=== PATIENT | male | born 1945 | race Caucasian/White ===

== ENCOUNTER 2019-08-29 11:11 | Outpatient (CLI) | payer MEDICARE, SELFPAY ==
--- NOTE | 2019-08-29 12:45 | USCV_ITS ---
Jose Bocanegra Age: 73 Gender: M : 1945 Exam Date: 08/29/2019 11:24 Ordering Phys: Lakeshia Lipscomb MD ([email or web address]) Technologist: Nader Bird [place]am Location[place] [facility] [place]: BP: 134 / 80 HR: 100 Rhythm: Sinus Technical Quality: Adequate MEASUREMENTS (Male / Female) Normal Values 2D ECHO LV Diastolic Diameter PLAX 2.9 cm 4.2 - 5.9 / 3.9 - 5.3 cm LV Systolic Diameter PLAX 2.1 cm IVS Diastolic Thickness 1.4 cm 0.6 - 1.0 / 0.6 - 0.9 cm IVS Systolic Thickness 1.7 cm LVPW Diastolic Thickness 1.5 cm 0.6 - 1.0 / 0.6 - 0.9 cm LVPW Systolic Thickness 1.7 cm LVOT Diameter 2.0 cm LV Ejection Fraction 2D Teich 55.3 % LV Ejection Fraction MOD 2C 69.6 % LV Ejection Fraction 2C AL 70.1 % LA Diameter 4.3 cm LA Width 3.6 cm LA Height 4.0 cm RA Width 3.2 cm RA Height 4.0 cm Aorta at Sinotubular Diameter 2.8 cm M-MODE LV Diastolic Diameter MM 5.1 cm 4.2 - 5.9 / 3.9 - 5.3 cm LV Systolic Diameter MM 3.6 cm LV Ejection Fraction MM Teich 57.4 % IVS Diastolic Thickness MM 1.2 cm 0.6 - 1.0 / 0.6 - 0.9 cm IVS Systolic Thickness MM 1.8 cm LVPW Diastolic Thickness MM 1.4 cm 0.6 - 1.0 / 0.6 - 0.9 cm LVPW Systolic Thickness MM 1.8 cm RV Diastolic Diameter MM 1.8 cm Aortic Annulus Diameter 3.3 cm LA Ao Ratio MM 1.3 MV E Point Septal Separation 1.6 cm DOPPLER AV Peak Velocity 320.0 cm/s LVOT Peak Velocity 108.0 cm/s AV Area Cont Eq vti 1.1 cm squared AV Area Cont Eq pk 1.1 cm squared MV Area PHT 5.0 cm squared Mitral E to A Ratio 0.6 MV E' Velocity 9.0 cm/s Mitral E to MV E' Ratio 11.3 Mitral E to LV E' Lateral Ratio 8.3 Mitral E to LV E' Septal Ratio 18.1 TR Peak Velocity 295.0 cm/s TR Peak Gradient 34.8 mmHg TV Peak E Velocity 74.0 cm/s FINDINGS Left Ventricle Normal left ventricular cavity size. Normal left ventricular systolic function. No regional wall motion abnormalities. Left ventricular ejection fraction is estimated at 57 %. Grade I/IV diastolic dysfunction (abnormal relaxation filling pattern), normal to mildly elevated filling pressures. Right Ventricle The right ventricle is normal in size and function. RVSP could not be calculated due to incomplete tricuspid regurgitation velocity profile. Right Atrium The right atrium is normal in size. Left Atrium The left atrium is normal in size. Mitral Valve Structurally normal mitral valve without significant stenosis or prolapse. There is no mitral regurgitation. Aortic Valve Severe aortic valve calcification. Moderate aortic valve stenosis, mean gradient 18.6 mmHg, ALYSSA 1.1 cm2 trace aortic valve regurgitation.. Tricuspid Valve Mild tricuspid valve regurgitation. Pulmonic Valve Structurally normal pulmonic valve without significant stenosis. There is no pulmonic regurgitation. Pericardium Normal pericardium without effusion. Aorta Normal ascending aorta dimension. CONCLUSIONS 1-Normal left ventricular cavity size. Normal left ventricular systolic function. No regional wall motion abnormalities. Left ventricular ejection fraction is estimated at 57 %. Grade I/IV diastolic dysfunction (abnormal relaxation filling pattern), normal to mildly elevated filling pressures. 2-Severe aortic valve calcification. Moderate aortic valve stenosis, mean gradient 18.6 mmHg, ALYSSA 1.1 cm2 trace aortic valve regurgitation.. 3-Mild tricuspid valve regurgitation. 4-The right ventricle is normal in size and function. RVSP could not be calculated due to incomplete tricuspid regurgitation velocity profile. 5-There is no pericardial effusion. 6-Right atrial pressure is around 5 mm of mercury. 7-No significant change since the prior echocardiogram study of 05/18/2018. Lakeshia Lipscomb MD (Electronically Signed) Final Date: 01 Sep 2019 19:06 S
== END 2019-08-29 11:12 | disposition home or self-care (01) ==
PROVIDERS: Family Provider Internal Medicine; PCP Internal Medicine; Visit Provider Internal Medicine Cardiovascular Disease
DX: I35.0 Nonrheumatic aortic (valve) stenosis (principal); R06.02 Shortness of breath; I51.81 Takotsubo syndrome; I08.1 Rheumatic disorders of both mitral and tricuspid valves; I70.0 Atherosclerosis of aorta
CPT/HCPCS: 93306

== ENCOUNTER 2020-03-15 08:03 | Outpatient (CLI) | payer MEDICARE, SELFPAY ==
[2020-03-15 08:54] LABS: Basophils # 0.1 10^3/uL (0.0-0.1); Basophils % 1.3 %; Eosinophils # 0.4 10^3/uL (0.0-0.8); Eosinophils % 3.7 %; Hematocrit 44.2 % (42.0-52.0); Hemoglobin 14.1 g/dL (11.7-16.6); Lymphocytes # 1.7 10^3/uL (0.8-4.8); Lymphocytes % 16.2 %; Mean Corpuscular HGB Conc 31.9 g/dL (30.0-36.0); Mean Corpuscular Hemoglobin 30.9 pg (28.0-34.0); Mean Corpuscular Volume 96.7 fL (80-94); Mean Platelet Volume 10.7 fL (7.4-10.4); Monocytes # 0.7 10^3/uL (0.2-0.9); Monocytes % 6.6 %; Neutrophils # 7.34 10^3/uL (1.8-7.7); Neutrophils % 71.4 %; Nucleated Red Blood Cells % 0 %; Platelet Count 132 10^3/cmm (130-400); Red Blood Count 4.57 10^6/uL (4.1-5.3); Red Cell Distribution Width 14.2 % (12.1-15.1); White Blood Count 10.3 10^3/uL (4.0-10.0)
[2020-03-15 09:06] LABS: INR 0.95 (0.8-1.2)
[2020-03-15 09:13] LABS: Anion Gap 17.6 (5-19); Blood Urea Nitrogen 16 mg/dL (8-23); Calcium 9.7 mg/dL (8.5-10.5); Carbon Dioxide 25 mmol/L (22-29); Chloride 98 mmol/L (98-107); Glucose 171 mg/dL (65-115); Osmolality Calculated 287 mOsm/kg (285-295); Potassium 4.6 mmol/L (3.5-5.1); Sodium 136 mmol/L (136-145)
== END 2020-03-15 08:04 | disposition home or self-care (01) ==
LOC: LAB 08:09
PROVIDERS: PCP Internal Medicine; Visit Provider Internal Medicine Cardiovascular Disease
DX: Z01.812 Encounter for preprocedural laboratory examination (principal)
CPT/HCPCS: 36415; 80048; 85025; 85610; 87635

== ENCOUNTER 2020-03-18 05:48 | Day surgery (SDC) | payer MEDICARE, SELFPAY ==
[2020-03-18] VITALS (16 sets, daily range): BP systolic 103–161; BP diastolic 68–93; PULSE 71–90; RESP 12–20; TEMP 37.1; O2SAT 93–98; BMI 30.5
--- NOTE | 2020-03-18 06:05 | XACV_ITS ---
Exam Room: 1 Ht: 173 cm Wt: 91 kg BSA: 2.12 m2 Gender: Male : 1945 Any Known Allergies: No known allergies Exam Priority: Routine Indication(s): - Chest pain Procedure(s): Procedure Description: Diagnostic procedure Procedure Description: Left Heart Catheterization Procedure Description: Right Heart Catheterization Procedure Description: O2 saturation Procedure Description: Coronary Angiography Diagnostic Cath Status: Elective Diagnostic Findings * No significant disease noted in the Left Main, LAD, Circumflex, or RCA coronary arteries. * Coronary angiography shows right dominance. Conclusions 1. No significant disease noted in the Left Main, LAD, Circumflex, or RCA coronary arteries. 2. Indication for 3. left heart cath 4. : 5. Preop 6. for aortic valve surgery. Recommendations * Continue current medical management and risk factor modification. Diagnostic RX Recommendation: none Pressures Phase:Rest AO : 89 / 59 ( 74 ) @ 2:19:00 AM RV : 34 / 0 / @ 2:03:00 AM PA : 34 / 13 ( 21 ) @ 2:02:00 AM RA : a wave = v wave = mean = 5 @ 2:05:00 AM O2 Content Phase:Rest PA : O2 Content O2: 64.9 @ 2:19:00 AM Saturations Phase:Rest AO : 92 @ 2:05:00 AM RA : 67 @ 2:04:00 AM RV : 68 @ 2:02:00 AM PA : 65 @ 2:19:00 AM Cardiac Output Phase:Rest Joann : 5 @ 2:19:00 AM Joann Cardiac Index: 2 @ 2:19:00 AM Clinical Evaluation EBL: 5mL-10mL Procedural Details Procedure Consent Obtained. Current Diagnosis : Chest Pain. Pre-Procedure Time Out. Identified patient by full name and date of as verbalized by the patient/guarantor. Does the consent match the physician's order: Yes. Accurate & Complete Informed Consent: Yes. Inpatient/Outpatient History & Physical on Chart: Yes. If H&P is completed, is and addenduem needed: N/A; If yes, is the addendum complete: N/A. Visualize and Verify Site with Patient/Guarantor: N/A. Relevant Radiology Images available: Yes. The risks, benefits, and alternatives of sedation and/or procedure were discussed by physician. The patient agrees to continue. Procedure started. [facility] Clinical Fraility Score: 3: Managing Well. 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 Chest Pain Symptom Assessment: Typical Angina Symptoms. Cardiovascular Instability: No. Correct patient, site and procedure confirmed by cath team. Current diagnosis: New Onset Angina/Unexplained SOB/Pre-Op AVR. PERRLA. Strong, equal hand country printer bilaterally. Lungs clear x 5 lobes. IV Site on Arrival: 18 gauge in the right anticubital to be used for RHC. IV Site on Arrival: 18 gauge in the left anticubital. IV Fluids: 0.9% NaCl at KVO. 0 mL infused prior to shellfish processing laborer. Pre Procedural Pulses: bilateral dorsalis pedis was 2+. Pre Procedural Pulses: bilateral posterior tibial was 3+. Pre Procedural Pulses: bilateral radial was 3+. right groin was prepped with chloroprep then draped in the usual sterile fashion. right radial was prepped with chloroprep then draped in the usual sterile fashion. Baseline sample Acquired. HR: 69 BPM. Patient's family unavailable due to current Covid-19 restrictions. Will update the patient's sister, Sil, at throughout the procedure. Equipment: 6F - Radial. Cardiac Cath Pack. ACIST Manifold Kit Model BT 2000. Heparinized Saline (2 units/mL), 1000 mL bag. Physician notified. Physician arrived. Physician scrubbed in. Immediate Pre-Procedure Time Out. Correct Patient: Yes; Correct Procedure: Yes; Correct Site: Yes; Correct Patient Position: Yes; Correct Supplies: Yes; Dried Flammable Prep: Yes; Blood Products Available: N/A;. Lidocaine 1% infiltrated to the right brachial. [place] MON catheter inserted. Oximetry samples were obtained. Normal venous range: 60-85%. Normal arterial range: 95-100%. Pressure measurements obtained. [place] out. Lidocaine 1% infiltrated to the right radial. Arterial access obtained. A 5 belgian TIG catheter in over the exchange wire. Multiple views taken of left coronary artery. Catheter redirected to the RCA. Multiple views taken of right coronary artery. AO Sat Drawn. Catheter removed over the exchange wire. A 5 belgian Angled Pig catheter in over the exchange wire. Oxygen started at 3liters/min via nasal canula. Exchange wire out, 260cm Angled Glidewire in. Catheter removed over the glidewire. A 5 belgian MPA1 catheter in over the exchange glidewire. Glidewire out, Exchange wire in. Catheter removed over the exchange wire. A 5 belgian Angled Pig catheter in over wire. Catheter removed over the exchange wire. Physician scrubbed out. Patient's family updated per Dr. Lipscomb. 6 fr Sheath brachial sheath removed and manual pressure held until hemostasis was achieved. Sterile 4x4 and Op-site applied to the puncture site. No oozing or hematoma noted. Post sheath removal instructions were given and the patient verbalized understanding. TR band placed. Hemostasis obtained. Post Procedure: Pulses reassessed and unchanged. PERRLA. Strong, equal hand country printer bilaterally. No VTE prophylaxis required. Medication's Wasted: Nitro = 49.8 mg. Medication's Wasted: Heparin = 1000 Units. Total IV fluids: 100 mL. A TR Band was successful obtaining hemostatsis at the Right Radial artery insertion site. A Manual Compression was successful obtaining hemostatsis at the Right Brachial Vein insertion site. Post-op diagnosis: Severe Aortic Stenosis/Normal Coronaries. Complications: none. Estimated blood loss: 5mL-10mL. Procedure completed. Patient transferred by wheelchair to CPRU. Vital chart was stopped. Access Site Site: Right Brachial Vein Sheath Size: 6 Fr Hemostasis Method: Manual Compression Hemostasis Success: Successful Site: Right Radial artery Sheath Size: 6 Fr Hemostasis Method: TR Band Hemostasis Success: Successful Procedure Medications Start: 7:42 AM Stop: 7:42 AM Medication: Versed Amount: 1 mg Route: I.V. Start: 7:42 AM Stop: 7:42 AM Medication: Fentanyl Amount: 50 mcg Route: I.V. Start: 8:17 AM Stop: 8:17 AM Medication: Nitrogylcerin Amount: 200 mcg Route: I.A. Start: 8:18 AM Stop: 8:18 AM Medication: Heparin Amount: 5000 units Route: I.V. Start: 8:29 AM Stop: 8:29 AM Medication: Versed Amount: 1 mg Route: I.V. Start: 8:29 AM Stop: 8:29 AM Medication: Fentanyl Amount: 50 mcg Route: I.V. I, the attending physician, have reviewed and verified all procedure medications. Yes, all medications given per verbal order History/Risk Factors Hypertension: Yes Dyslipidemia: Yes Peripheral Arterial Disease (PAD): No Myocardial Infarction (FL): No Obesity: No Renal Disease: No Tobacco Use: Former Prior Interventions PCI: No CABG: No Valve Surgery: No Report Signatures Finalized by Lakeshia Lipscomb MD on 03/31/2020 06:13 PM
[2020-03-18] MEDS: diphenhydrAMINE 50 mg Capsule PO (06:20)
--- NOTE | 2020-03-18 07:42 | W.PM.OPSUD ---
Surgery/Procedure H&P Update DATE OF PROCEDURE: March 18, 2020 DATE H&P PERFORMED: 03/18/20 H&P UPDATE INFORMATION: I have reviewed H&P completed within last 30 days, I have examined patient prior to procedure and No changes to prior documentation PREOP DIAGNOSIS: Preop for aortic valve, unexplained shortness of breath PLANNED PROCEDURE: Operation Date: 03/18/20 07:00 Proposed Procedures p Cardiac Catheterization(Bilateral) - Lakeshia Lipscomb MD PATIENT REASSESSED PRIOR TO SEDATION, WITH NO CHANGE NOTED: Yes PHYSICAL EXAM: alert, oriented x 3 and clear to auscultation bilaterally AIRWAY EVAL/ANESTHESIA PLAN: ASA II, Risks, benefits & alternatives of sedation and/or procedure discussed and Patient agrees to continue as planned
--- NOTE | 2020-03-18 07:43 | W.PM.OPSUD ---
Surgery/Procedure H&P Update DATE OF PROCEDURE: February 29, 2020 DATE H&P PERFORMED: 03/18/20 PREOP DIAGNOSIS: Preop for aortic valve, unexplained shortness of breath PLANNED PROCEDURE: Operation Date: 03/18/20 07:00 Proposed Procedures p Cardiac Catheterization(Bilateral) - Lakeshia Lipscomb MD
--- NOTE | 2020-03-18 09:00 | PC.NURSE ---
pre-op received pt from terrazzo laborer with diagnostic right and left heart cath. pt alert and oriented x3. complains of no pain. tr band in place with no hematoma present. pt hooked to vitals machine and will monitor.
--- NOTE | 2020-03-18 09:30 | PC.CHAP ---
Pastoral Care Encounter/Spiritual Assessment Type of Contact [] Declined console operator visit [] Patient/Family/Request visit [] Outpatient visit [] Follow-up visit [] Physician referral [] Code/Alert [] Routine visit [] Staff referral [] Actively dying [] Patient sleeping [] Family support [] [x] Out of room [] Palliative care [] [] Receiving care in room [] Pre-surgical visit [] Trauma [] Long length of stay [] ICU visit [] Other: Relational/Emotional Strength [] Patient feels connected with others/family/visitors/staff [] Distress [] Loneliness/isolation [] Abandonment Spirituality of Patient [] Person of Saniya [] Attends Baptism of their Saniya [] Believes in Prayer [] Reads Bible or Congregation materials [] There are Spiritual issues to be addressed Saw Edge Fuser Circular Interventions [] Prayer [] Active listening [] Non-anxious presence [] Spiritual/emotional support [] Crisis/trauma care [] Spiritual counseling [] Bereavement support [] Provided bereavement packet [] Provided Bible/devotional materials [] Provided toy/stuffed animal, coloring book to patient or family member [] Provided Communion [] Anointing/[place] [] Salvation [x] Completed spiritual assessment [] Other: Impact on Illness or Injury [] Angry [] Fearful [] Anxious [] Often cries [] Exhaustion [] Unable to work [] Unable to attend confucianist [] Unable to walk/stand [] Unable to read [] Unable to drive [] Unable to eat/drink [] Unable to sleep [] Unable to be with family [] Patient intubated [] Other: Summary Time spent with patient
--- NOTE | 2020-03-18 10:06 | PC.NURSE ---
tr band removed 3 ml of air from tr band. no bleeding noted. will continue to watch for bleeding/hematoma.
--- NOTE | 2020-03-18 11:45 | PC.NURSE ---
tr band removed tr band removed and will continue to monitor site. pt reminded to keep pressure off right wrist. pt acknowledged understanding.
== END 2020-03-18 13:44 | disposition home or self-care (01) ==
PROVIDERS: PCP Internal Medicine; Visit Provider Internal Medicine Cardiovascular Disease
DX: I35.0 Nonrheumatic aortic (valve) stenosis (principal); I10 Essential (primary) hypertension; Z79.82 Long term (current) use of aspirin; Z82.49 Family history of ischemic heart disease and other diseases of the circulatory system; Z87.891 Personal history of nicotine dependence
CPT/HCPCS: 12345; 36415; 93456; C1751; C1769; C1887; C1894; J1644; J2250; J3010; J3490; J7030; Q0163; Q9967

== ENCOUNTER → 2020-03-25 11:33 | Outpatient (BNVA) | payer MEDICARE, SELFPAY | PROVIDERS: PCP Internal Medicine; Visit Provider Nurse Practitioner Family | DX: I35.0 Nonrheumatic aortic (valve) stenosis (principal) | CPT/HCPCS: 80048 ==

== ENCOUNTER 2020-04-08 09:33 | Outpatient (CLI) | payer MEDICARE, SELFPAY ==
--- NOTE | 2020-04-08 09:49 | XRR_ITS ---
PROCEDURE INFORMATION: Exam: XR Abdomen, 1 View Exam date and time: 04/08/2020 9:58 AM Age: 74 years old Clinical indication: Constipation; Abdominal pain; Localized; Lower; Additional info: Mild constipation, lower abd pain x 3 weeks TECHNIQUE: Imaging protocol: XR of the abdomen. Views: Frontal supine view of the abdomen. 1 View. COMPARISON: CR [place] barium enema [id number] 07/27/2018 8:30 AM FINDINGS: Gastrointestinal tract: Prominent stool and gastric air. Vasculature: Pelvic calcifications, presumably vascular in etiology. If urolithiasis is of clinical concern, CT may be of benefit for further evaluation. Bones/joints: Degenerative change. XR/XR KUB [id number] IMPRESSION: Prominent stool and gastric air.
== END 2020-04-08 09:34 | disposition home or self-care (01) ==
PROVIDERS: PCP Internal Medicine; Visit Provider Nurse Practitioner Family
DX: K59.00 Constipation, unspecified (principal)
CPT/HCPCS: 74018

== ENCOUNTER → 2020-04-18 08:34 | Outpatient (BNVA) | payer MEDICARE, SELFPAY | PROVIDERS: PCP Internal Medicine; Visit Provider Internal Medicine Cardiovascular Disease | DX: I35.0 Nonrheumatic aortic (valve) stenosis (principal) | CPT/HCPCS: 87635 ==

== ENCOUNTER 2020-04-23 10:27 | Day surgery (SDC) | payer MEDICARE, SELFPAY ==
[2020-04-22 11:58] VITALS: BMI 30.8
[2020-04-23 10:59] VITALS: BP 141/90; PULSE 81; RESP 18; TEMP 36.7; O2SAT 95
[2020-04-23 11:13] LABS: Glucose Point of Care 174 mg/dL (70-110)
[2020-04-23] MEDS: sodium chloride 0.9% 1,000 ML 30 ML IV (11:15)
--- NOTE | 2020-04-23 11:35 | ANES.PREANE2 ---
Pre-Anesthetic Assessment Pre-Anesthetic Assessment: Height/Weight: Height 1.7 m Weight 89.358 kg Temp Pulse Resp BP Pulse Ox 98.1 F 81 18 141/90 95 04/23/20 10:59 04/23/20 10:59 04/23/20 10:59 04/23/20 10:59 04/23/20 10:59 Preop Diagnosis: Preop for aortic valve, unexplained shortness of breath Proposed Procedure: Operation Date: 04/23/20 12:00 Proposed Procedures p NOHEYM(Not Applicable) - Lakeshia Lipscomb MD Familial anesthetic complications: None Was Beta Kassandra taken within 24 hours: Yes Last intake: Intake Last Liquid Date 04/22/20 Last Liquid Time 19:00 Last Solid Date 04/22/20 Last Solid Time 20:00 Social: Social History: No alcohol and No tobacco Exam: Pre-Anes Outpt Exam: alert, oriented x 3, clear to auscultation bilaterally and regular rate & rhythm Airway: Cervical ROM: WNL MP: 3 Dentition: Full CV/HEM: Comments: Mod - severe EF 65% Metabolic: Metabolic: DM Anesthetic Plan: ASA status: 3 Anesthesia: MAC Risk of > 500 ml blood loss (7ml/kg in children): No Meds/Allergies Current Medications: Current Medications Generic Name Dose Route Start Last Admin Trade Name Freq PRN Reason Stop Dose Admin Sodium Chloride 1,000 mls @ 30 ml s/hr 04/23/20 10:45 04/23/20 11:15 Sodium Chloride 0.9% IV 04/24/20 10:44 30 mls/hr .Q24H INDRA Administration PFSH Anesthesia PFSH: Medical History Aortic valve stenosis HTN (hypertension) Family History Father Myocardial infarction CAD (coronary artery disease) Brother Myocardial infarction CAD (coronary artery disease) Mother Myocardial infarction Stroke Diabetes Social History Smoking and tobacco status: former smoker Data Anesthesia Other Labs: Laboratory Results - last 48 hr 04/23/20 11:10 POC Glucose 174 H Cardiac Studies: No Data to Display
--- NOTE | 2020-04-23 12:00 | USCV_ITS ---
Jose Bocanegra Age: 74 Gender: M : 1945 Exam Date: 04/23/2020 12:29 Ordering Phys: Lakeshia Lipscomb MD ([email or web address]) Technologist: Nader Bird Exam Location: [facility] – [place] Indication: as BP: / HR: Rhythm: Sinus Technical Quality: Good MEASUREMENTS (Male / Female) Normal Values Medications Patient given IV sedation by anesthesia service, for details please refer to the anesthesia report. Complications None. Proc. Components FINDINGS Left Ventricle Normal left ventricular cavity size. Normal left ventricular systolic function. No regional wall motion abnormalities. Left ventricular ejection fraction is estimated at 55 %. Right Ventricle The right ventricle is normal in size and function. Right Atrium The right atrium is normal in size. Left Atrium The left atrium is normal in size. LA Appendage No thrombus visualized in the left atrial appendage. IA Septum No jfkl-gq-bduow shunt seen at the atrial level. No right-to- left shunt seen at the atrial level with contrast. Mitral Valve Moderately thickened mitral valve. No mitral valve stenosis.moderate mitral annular calcification. Trace mitral valve regurgitation. Aortic Valve Severe aortic valve calcification. Ulsshwyd-yo-ynqzdd aortic valve stenosis. By planimetry aortic valve area is around 1.4 cm2.mild aortic valve regurgitation. Tricuspid Valve Trace tricuspid valve regurgitation. Pulmonic Valve Structurally normal pulmonic valve without significant stenosis. There is no pulmonic regurgitation. Pericardium Normal pericardium without effusion. Aorta Plaque seen in the ascending aorta. CONCLUSIONS 1-Normal left ventricular cavity size. Normal left ventricular systolic function. No regional wall motion abnormalities. Left ventricular ejection fraction is estimated at 55 %. 2-Severe aortic valve calcification. Qsfshqcf-tr-nkfwcc aortic valve stenosis. By planimetry aortic valve area is around 1.4 cm2.mild aortic valve regurgitation. 3-Moderately thickened mitral valve. No mitral valve stenosis.moderate mitral annular calcification. Trace mitral valve regurgitation. 4-There is no pericardial effusion. 5-There are no prior echocardiogram studies to compare. Lakeshia Lipscomb MD (Electronically Signed) Final Date: 24 April 2020 19:01 S
--- NOTE | 2020-04-23 12:24 | W.PM.OPSUD ---
Surgery/Procedure H&P Update DATE OF PROCEDURE: April 23, 2020 DATE H&P PERFORMED: 03/25/20 PREOP DIAGNOSIS: Preop for aortic valve, unexplained shortness of breath PLANNED PROCEDURE: Operation Date: 04/23/20 12:00 Proposed Procedures p NOHEMY(Not Applicable) - Lakeshia Lipscomb MD
[2020-04-23 12:40] VITALS: BP 100/68; PULSE 81; RESP 16; TEMP 37; O2SAT 93
[2020-04-23 12:53] VITALS: BP 92/65; PULSE 77; RESP 16; O2SAT 93
[2020-04-23 13:00] VITALS: BP 97/71; PULSE 77; RESP 18; O2SAT 94
--- NOTE | 2020-04-23 18:52 | ANE.PACU2 ---
Inpatient post-anesthesia follow up: Airway intact: Yes Vital signs: Temperature 98.6 F Pulse Rate 77 Respiratory Rate 18 Blood Pressure 97/71 Pulse Oximetry 94 Oxygen Delivery Me thod Room Air Oxygen Flow Rate 3 Fraction of Inspir ed Oxygen Hydration adequate: Yes Nausea and vomiting: No Pain level: 1 Mental status: Baseline
== END 2020-04-23 13:25 | disposition home or self-care (01) ==
PROVIDERS: PCP Internal Medicine; Visit Provider Internal Medicine Cardiovascular Disease
PROC: (CPT 93312; principal; 2020-04-23 12:00)
DX: I35.0 Nonrheumatic aortic (valve) stenosis (principal); Z79.82 Long term (current) use of aspirin; E11.9 Type 2 diabetes mellitus without complications; Z79.84 Long term (current) use of oral hypoglycemic drugs; I10 Essential (primary) hypertension; Z87.891 Personal history of nicotine dependence
CPT/HCPCS: 12345; 36416; 82962; 93312; 93320; 93325; J2704; J7030

== ENCOUNTER 2020-07-24 11:09 | Outpatient (CLI) | payer MEDICARE, SELFPAY ==
--- NOTE | 2020-07-24 11:31 | CT_ITS ---
WS: [id number] CT ABDOMEN AND PELVIS WITH CONTRAST HISTORY: ABDOMINAL PAIN, RIGHT UPPER QUADRANT TECHNIQUE: Imaging performed of the abdomen and pelvis with IV contrast. Single phase imaging of the abdomen. Coronal and sagittal reformats are submitted. All CT scans at [facility] use at least one of these dose optimization techniques: automated exposure control; mA and/or kV adjustment per patient size (includes targeted exams where dose is matched to clinical indication); or iterativ e reconstruction. IV CONTRAST: Omnipaque 300; 95 mL IV. Oral contrast: Yes. DLP: 1244.14 mGycm COMPARISON: 02/20/2015 Lower thorax: Bilateral subcentimeter nodules at the lung bases. Largest nodule at the RIGHT lung bas e measures 9 mm. Additional dependent changes and early changes of honeycombing at the lung bases. Mi ldly enlarged lymph nodes along the RIGHT inferior pulmonary artery and subcarinal measuring up to 13 mm in diameter. Normal size heart with extensive vascular calcifications in the coronary arteries. N o hiatal hernia. Liver/biliary system: Abnormal liver. There is a soft tissue mass with irregular borders involving a large portion of the LEFT lobe of the liver. This mass extends across the falciform ligament. Mass measures at least 4.7 x 8.7 cm and exten ds over a length of 5.6 cm. There are additional small hypoechoic lesions throughout the remaining li [place] and small adjacent satellite lesions to the large dominant mass. LEFT portal vein is probably occ luded distally. No bile duct dilatation. Gallbladder: Normal. No gallstones or wall thickening. No pericholecystic fluid. Pancreas: Normal. Spleen: Normal. Adrenal glands: Normal. Right kidney: Mild perinephric stranding. No obstruction. Left kidney: Mild perinephric stranding with no obstruction. Simple cyst in the mid kidney measures 4 .2 x 4.5 cm. Aorta: Extensive atherosclerosis aorta. Mild ectasia. Lymphadenopathy: Abnormal lymph node adjacent to the anterior pericardium and in the pericardial fat on the RIGHT. These lymph nodes measure up to 12 mm. There are additional scattered mesenteric lymph nodes and retroperitoneal lymph nodes. 11 mm lymph node adjacent to the sigmoid. There is also extens xochitl omental nodularity and thickening. Free fluid: There is a small amount of free fluid adjacent to the liver and spleen and extending marla g the RIGHT paracolic gutter. Small amount of fluid adjacent to the cecum and lateral to the sigmoid. GI tract: Moderate mucosal thickening involving the antrum of the stomach. Mild diffuse constipation. Soft tissue thickening at the cecum appears predominantly to be fluid. Forced 0.4 cm stricture and l uminal narrowing near the hepatic flexure. There is extensive diverticular disease in the descending and sigmoid colon. Significant wall thickening at the sigmoid with adjacent fluid and a few lymph nod es. Abdominal wall: Unremarkable abdominal wall. No hernia. Pelvis: Small amount of free fluid in the pelvis. There is a calcification in the midline of the pelv is which may be related to the prostate gland. This does not appear contiguous with the bladder. Michelet tional small phleboliths. Bones: Unremarkable. CT/CT abdomen pelvis w con* [id number] IMPRESSION: 1. Irregular mass centered in the LEFT lobe of the liver measures 4.7 x 8.7 x 5.6 cm. There are additional scattered nodules suspicious for metastatic diseas e. 2. Bilateral lower lobe pulmonary nodules and lymph nodes along the inferior R IGHT pulmonary ligament, subcarinal and pericardiac fat consistent with metasta tic disease. 3. There is moderate nodularity and thickening of the omentum consistent with peritoneal carcinomatosis. Numerous small scattered lymph nodes within the mese ntery and retroperitoneum. 4. Multifocal areas of abnormality within the colon. Stricture near the hepati c flexure. There is significant wall thickening and diverticular disease involv ing the descending and sigmoid colon. There is fluid and lymph nodes adjacent to the sigmoid colon. This may be be secondary to an acute diverticulitis or ne oplastic disease. Recommend colonoscopy follow-up. 5. Additional circumferential thickening involving the antrum of the stomach c ould also be neoplastic. Notified Jessica Shaw MD at 07/24/2020 1:55 PM.
[2020-07-24] MEDS: iohexol 300 mg/mL 50 mL Btl PO (12:47)
[2020-07-24 13:20] LABS: Blood Urea Nitrogen 5 mg/dL (8-23)
[2020-07-24] MEDS: iohexol 300 mg/mL 100 mL Btl IV (13:22)
== END 2020-07-24 11:10 | disposition home or self-care (01) ==
LOC: RADWPI 11:15
PROVIDERS: PCP Internal Medicine; Visit Provider Internal Medicine
DX: R10.11 Right upper quadrant pain (principal); R91.8 Other nonspecific abnormal finding of lung field; R16.0 Hepatomegaly, not elsewhere classified
CPT/HCPCS: 74177; 82565; 84520; Q9967

== ENCOUNTER 2020-08-06 06:44 | Outpatient (CLI) | payer MEDICARE, SELFPAY ==
[2020-08-02 13:59] VITALS: BMI 28.1
[2020-08-05 12:22] LABS: INR 0.97 (0.8-1.2)
[2020-08-06] VITALS (8 sets, daily range): BP systolic 101–118; BP diastolic 67–83; PULSE 75–88; RESP 18; TEMP 36.6; O2SAT 94–97; BMI 28.1
--- NOTE | 2020-08-06 08:00 | US_ITS ---
WS: [id number] INDICATION: Ultrasound-guided liver biopsy. Liver mass TECHNIQUE: Ultrasound-guided liver biopsy FINDINGS: The procedure including risks benefits and complications were discussed with the patient wh o agreed to proceed. Using sterile technique patient was prepped and draped in the usual sterile [facility] ion. After 1% lidocaine, using ultrasound guidance, the largest lesion left hepatic lobe was selected . Multiple 18-gauge and 14-gauge cores were obtained. No immediate complications. US/US biopsy liver [id number] IMPRESSION: Uncomplicated ultrasound-guided left liver mass biopsy. Pathology i s pending.
[2020-08-06] MEDS: fentaNYL 50 mcg/mL INJ 2mL 25 MCG IVP ×2 (08:35→08:42)
[2020-08-06] MEDS: midazolam 1 mg/mL INJ 2 mL IVP ×2 (08:37→08:42)
== END 2020-08-06 10:35 | disposition home or self-care (01) ==
PROVIDERS: Radiology Neuroradiology; PCP Internal Medicine; Visit Provider Internal Medicine
DX: R16.0 Hepatomegaly, not elsewhere classified (principal)
CPT/HCPCS: 47000; 76942; 85610; 88307; J2250; J3010

== ENCOUNTER 2020-08-13 09:48 | Outpatient (CLI) | payer MEDICARE, SELFPAY ==
--- NOTE | 2020-08-14 15:45 | ONC CON_ITS ---
Dr. Louie New Patient Note Patient: Jose Bocanegra Unit #: [id number]: 1945 Dicatated By: Collette Louie M.D.Date of Visit: Aug 13, 2020 Onc MED New Patient/Consult Referring Physician: Dr. IAN COTTO M.D. History of Present Illness: Mr. Jose Bocanegra, is a 74-year-old gentleman with history of poor taste abdominal discomfort and about 40 pound weight loss since September 2019, as per patient he used to weigh 233 pounds now down to 185 pounds also complaining of excessive, off and on dysphagia. Denies any abdominal pain, denies any melena or hematochezia, denies any hemoptysis or hematemesis as per patient, he had a colonoscopy done in 2019 But it was suboptimal study because of sigmoid stricture and colonoscopy was not advanced further subsequently underwent barium enema which showed narrowing of sigmoid colon secondary to chronic diverticulosis, patient was evaluated by PMD for above mentioned symptoms and underwent CT scan of abdomen pelvis on July 24, 2020 which showed irregular mass centered in left lobe of liver measuring 4.7 x 8.7 x 5.6 cm. There are additional scattered nodules suspicious for metastatic disease. Bilateral lower lobe pulmonary nodules and lymph nodes along the right pulmonary ligament. There is a moderate nodularity and thickening of the omentum consistent with peritoneal carcinomatosis. Numerous small scattered lymph nodes within the mesentery and retroperitoneum. Multifocal area of abnormality within the colon, stricture near the hepatic flexure. There is a significant wall thickening and diverticular disease involving the descending and sigmoid colon. Additional circumstantial thickening involving antrum of stomach could be neoplastic.And lab work-up done on July 25, 2020 shows white blood count 8 hemoglobin 14 hematocrit 42.5 platelets 125,000 with a normal differential CEA 1.8, on August 06, 2020 he underwent sonogram guided liver biopsy which confirmed adenocarcinoma immunohistochemistry showed CK7 positive and p63 and weakly positive otherwise negative for CEA, CDX2, CK 5/6, CK20, Napsin, TTF-1, PIN 4,, as per pathology based on metastatic carcinoma being CK positive, CK20 negative and TTF-1 negative possibility of lung primary or colon primary is less likely but gastric adenocarcinoma, pancreatic subtype or an extrahepatic carcinoma bile duct is high on the differential. Patient underwent CT PET scan on August 03, 2020 which showed questionable sigmoid colon mass, extensive hepatic metastatic disease, malignant adenopathy in mediastinum, mesenteric, retroperitoneal area. Malignant omental implants and carcinomatosis. Malignant bilateral pulmonary nodules. Past Medical History: Mr. Bocanegra's medical history consists of aortic valve stenosis, cataract, gout, hyperlipidemia, hypertension, and type II diabetes. Past Surgical History: Mr. Bocanegra's surgical/procedural history consists of cataract excision, colonoscopy, covid vaccine #2 in 2020, and covid vaccine #1 in 2020. Medications: Allopurinol 1 Tablet (of 100 mg) Oral b.i.d., Cod Liver Oil 1 Capsule (of 1000 mg) Oral daily, glipiZIDE 1 Tablet (of 5 mg) Oral b.i.d., Isosorbide Mononitrate ER 1 Tablet (of 30 mg) Tablet SR 24 HR Oral daily, Lisinopril 1 Tablet (of 20 mg) Oral daily, metFORMIN HCl 1 Tablet (of 1000 mg) Oral b.i.d., Metoprolol Succinate ER 0.5 Tablet (of 25 mg) Tablet SR 24 HR Oral daily, Niacin 1 Tablet (of 500 mg) Oral daily, Simvastatin 1 Tablet (of 40 mg) Oral daily Allergies: No Known Allergies. Social History: Mr. Bocanegra is . Mr. Bocanegra no longer smokes. He drinks occasionally. Family History: There is no documented family history. Review Of Symptoms: Review of Systems is not available for this patient. Vital Signs: Performed on Aug 13, 2020 11:03: 3, 0, 0.00, 0.00 sq.m, 97 %, 102 /min (HIGH), 18 /min, 130/78 mm(hg), 98.1 F (LOW), and 185.8 lbs (HIGH). Performance Status: 1 - No physically strenuous activity, but ambulatory and able to carry out light or sedentary work (e.g. office work, light house work). (ECOG) Physical Examination: ENMT - No mouth sores, no thrush, no jaundice, no cervical lymphadenopathy, Respiratory - Poor air entry otherwise clear, Cardiovascular - Regular rate and rhythm of heart, Abdomen - Soft, distended, bowel sounds present, no focal tenderness or mass palpable, Extremities - No visible edema or rash. Lab/Imaging: Most recent lab results are not available for this patient. Impression: Metastatic carcinoma per sonogram guided liver biopsy done on August 06, 2020, immunohistochemistry stain positive for CK7 but negative for CEA, CDX2, CK 5/6, CK20, Napsin, TTF-1, PIN 4, CT PET scan done on August 03 2020 showed questionable sigmoid colon mass, extensive metastatic disease in the liver dominant lesion in the left hepatic lobe demonstrating significant central necrosis measuring 9.6 x 5.4 cm SUV of 10. FDG positive soft tissue omental implants and omental stranding is consistent with carcinomatosis. Bilateral FDG positive retroperitoneal nodes down to the level of aortic bifurcation and extensive mesenteric lymphadenopathy. Intensive sigmoid colonic uptake suggestive of malignancy also noted FDG positive mediastinal nodes consistent with malignancy and bilateral pulmonary nodules, are FDG positive Diabetes mellitus, hypertension, aortic stenosis Plan: Discussed with patient regarding his liver biopsy report and as per discussion with pathology, tumor being CK positive CK20 negative and TTF-1 negative, possibility of lung primary and colon primary is less likely although CT PET scan shows intense uptake in sigmoid colon and colonoscopy done in 2019 showed stricture because of that colonoscopy was not pushed further and patient had suboptimal colonoscopy evaluation and subsequent barium enema confirmed sigmoid colon stricture, at that time impression was probably due to extensive diverticulosis. But as per pathology possibility of primary could be gastric adenocarcinoma or pancreatic or cholangiocarcinoma. So at this point, will consider guardant 360 to identify targetable therapeutic mutation, also check PD-L1 and cancer type ID, his CEA was normal, will check CA 19???9. And also request Port-A-Cath placement, patient has already seen Dr. Chen and he will return to clinic in 2 weeks, hopefully by that time will have above-mentioned work-up, at that time will make treatment plan. Patient was advised that his disease is not curable and treatment intent would be palliative only, his prognosis is guarded. Signed By: Collette Louie M.D. <<Signature on File>>
== END 2020-08-13 09:49 | disposition home or self-care (01) ==
PROVIDERS: PCP Internal Medicine; Visit Provider Internal Medicine Hematology & Oncology
DX: C18.7 Malignant neoplasm of sigmoid colon (principal); C78.7 Secondary malignant neoplasm of liver and intrahepatic bile duct; C78.01 Secondary malignant neoplasm of right lung; C78.02 Secondary malignant neoplasm of left lung; E11.9 Type 2 diabetes mellitus without complications; I10 Essential (primary) hypertension; I35.1 Nonrheumatic aortic (valve) insufficiency; Z79.899 Other long term (current) drug therapy
CPT/HCPCS: 88342; 99204

== ENCOUNTER 2020-08-15 08:49 | Outpatient (CLI) | payer MEDICARE, SELFPAY | END 2020-08-15 08:50 | disposition home or self-care (01) | LOC: ONCMED 08:51 | PROVIDERS: PCP Internal Medicine; Visit Provider Internal Medicine Hematology & Oncology | DX: C18.7 Malignant neoplasm of sigmoid colon (principal); C78.7 Secondary malignant neoplasm of liver and intrahepatic bile duct; C77.8 Secondary and unspecified malignant neoplasm of lymph nodes of multiple regions; C78.01 Secondary malignant neoplasm of right lung; C78.02 Secondary malignant neoplasm of left lung; E11.9 Type 2 diabetes mellitus without complications; I10 Essential (primary) hypertension; I35.0 Nonrheumatic aortic (valve) stenosis; Z79.899 Other long term (current) drug therapy | CPT/HCPCS: 36415; 87635 ==

== ENCOUNTER 2020-08-22 07:20 | Day surgery (SDC) | payer MEDICARE, SELFPAY ==
[2020-08-19 10:51] LABS: PD-L1 (Clone 22C3) by IHC BBPL See Report
[2020-08-20 10:09] VITALS: BMI 27.3
[2020-08-22 08:09] VITALS: BP 115/87; PULSE 83; RESP 18; TEMP 36.2; O2SAT 96
--- NOTE | 2020-08-22 08:13 | ANES.PREANE2 ---
Pre-Anesthetic Assessment Pre-Anesthetic Assessment: Height/Weight: Height 1.73 m Weight 81.647 kg Temp Pulse Resp BP Pulse Ox 97.2 F L 83 18 115/87 96 08/22/20 08:09 08/22/20 08:09 08/22/20 08:09 08/22/20 08:09 08/22/20 08:09 Preop Diagnosis: Preop for aortic valve, unexplained shortness of breath Proposed Procedure: Operation Date: 08/22/20 09:00 Proposed Procedures p EGD Dilation W/ Balloon 91979 r13.10(Not Applicable) - Jose Chen MD Was Beta Kassandra taken within 24 hours: Yes Was Clonidine taken within 24 hours: N/A Last intake: Intake Last Liquid Date 08/21/20 Last Liquid Time 17:00 Last Solid Date 08/21/20 Last Solid Time 20:00 Social: Social History: No alcohol and No tobacco Exam: Pre-Anes Outpt Exam: alert, oriented x 3, clear to auscultation bilaterally and regular rate & rhythm Airway: Submandibular: WNL Cervical ROM: WNL MP: 2 CV/HEM: CV/HEM: CAD, HTN and Murmur () Anesthetic Plan: ASA status: 3 Anesthesia: MAC Risk of > 500 ml blood loss (7ml/kg in children): No PFSH Anesthesia PFSH: Medical History Aortic valve stenosis Diabetes mellitus Gout HTN (hypertension) Hyperlipemia Surgical History History of colonoscopy 2019 Hx of cataract surgery S/P cardiac cath Family History Father Myocardial infarction CAD (coronary artery disease) Brother Myocardial infarction CAD (coronary artery disease) Mother Myocardial infarction Stroke Diabetes Social History Smoking and tobacco status: former smoker Data Anesthesia Cardiac Studies: No Data to Display
[2020-08-22] MEDS: sodium chloride 0.9% 1,000 ML 30 ML IV (08:21)
[2020-08-22 08:26] LABS: Glucose Point of Care 147 mg/dL (70-110)
--- NOTE | 2020-08-22 09:03 | W.PM.OPSUD ---
Surgery/Procedure H&P Update DATE OF PROCEDURE: August 22, 2020 DATE H&P PERFORMED: 08/02/20 H&P UPDATE INFORMATION: I have reviewed H&P completed within last 30 days, I have examined patient prior to procedure and No changes to prior documentation PREOP DIAGNOSIS: Preop for aortic valve, unexplained shortness of breath PLANNED PROCEDURE: Operation Date: 08/22/20 09:00 Proposed Procedures p EGD Dilation W/ Balloon 92367 r13.10(Not Applicable) - Jose Chen MD
[2020-08-22 09:32] VITALS: BP 94/69; PULSE 87; RESP 18; TEMP 36.2; O2SAT 93
[2020-08-22 09:51] VITALS: BP 96/79; PULSE 84; RESP 18; TEMP 36.7; O2SAT 92
--- NOTE | 2020-08-22 17:14 | ANE.PACU2 ---
Inpatient post-anesthesia follow up: Airway intact: Yes Vital signs: Temperature 98.1 F Pulse Rate 84 Respiratory Rate 18 Blood Pressure 96/79 Pulse Oximetry 92 Oxygen Delivery Me thod Room Air Oxygen Flow Rate Fraction of Inspir ed Oxygen Hydration adequate: Yes Nausea and vomiting: No Pain level: 1 Mental status: Baseline
== END 2020-08-22 10:07 | disposition home or self-care (01) ==
PROVIDERS: Internal Medicine Hematology & Oncology; PCP Internal Medicine; Visit Provider Surgery
DX: R13.10 Dysphagia, unspecified (principal); K20.90 Esophagitis, unspecified without bleeding; Z79.82 Long term (current) use of aspirin; E11.9 Type 2 diabetes mellitus without complications; Z79.84 Long term (current) use of oral hypoglycemic drugs; I10 Essential (primary) hypertension; E78.5 Hyperlipidemia, unspecified; Z82.49 Family history of ischemic heart disease and other diseases of the circulatory system; I25.2 Old myocardial infarction; Z87.891 Personal history of nicotine dependence; I25.10 Atherosclerotic heart disease of native coronary artery without angina pectoris
CPT/HCPCS: 36416; 43249; 82962; 96360; 96361; J2704; J7030

== ENCOUNTER → 2020-08-23 08:31 | Outpatient (BNVA) | payer MEDICARE, SELFPAY | PROVIDERS: PCP Internal Medicine; Visit Provider Surgery | DX: Z01.812 Encounter for preprocedural laboratory examination (principal); Z20.822 Contact with and (suspected) exposure to COVID-19 | CPT/HCPCS: 87635 ==

== ENCOUNTER 2020-08-26 12:57 | Day surgery (SDC) | payer MEDICARE, SELFPAY ==
[2020-08-23 14:32] VITALS: BMI 27.3
[2020-08-26] VITALS (7 sets, daily range): BP systolic 85–133; BP diastolic 58–76; PULSE 75–85; RESP 14–20; TEMP 36.2–36.5; O2SAT 93–97
--- NOTE | 2020-08-26 | SCC_ITS ---
Procedure Done: Placement of PowerPort in the left subclavian vein Fluoroscopic guidance and interpretation for placement of catheter 34 seconds of fluoroscopic guidance, for a cumulative dose of 10.13 mGy, was provided to Dr. Chen by the radiology department. C-arm images of the chest were saved for the patient's permanent record. [facility]
--- NOTE | 2020-08-26 13:50 | W.PM.OPSUD ---
Surgery/Procedure H&P Update DATE OF PROCEDURE: August 26, 2020 DATE H&P PERFORMED: 08/02/20 H&P UPDATE INFORMATION: I have reviewed H&P completed within last 30 days, I have examined patient prior to procedure and No changes to prior documentation PREOP DIAGNOSIS: Metastatic cancer PLANNED PROCEDURE: Operation Date: 08/26/20 14:25 Proposed Procedures p Portacath Placement 24313 c78.7(Not Applicable) - Jose Chen MD
[2020-08-26 13:59] LABS: Glucose Point of Care 151 mg/dL (70-110)
--- NOTE | 2020-08-26 14:00 | SC_ITS ---
WS: [id number] C-ARM RADIOGRAPHS CHEST; 4 IMAGES HISTORY: SURGERY COMPARISON: None available. Intraoperative imaging during Mediport placement. SC/C-arm FL for CVA 57024 IMPRESSION: Intraoperative imaging during Mediport placement.
--- NOTE | 2020-08-26 14:07 | ANES.PREANE2 ---
Pre-Anesthetic Assessment Pre-Anesthetic Assessment: Height/Weight: Height 1.73 m Weight 81.647 kg Temp Pulse Resp BP Pulse Ox 97.4 F L 85 18 133/76 96 08/26/20 13:28 08/26/20 13:28 08/26/20 13:28 08/26/20 13:28 08/26/20 13:28 Preop Diagnosis: Metastatic cancer Proposed Procedure: Operation Date: 08/26/20 14:25 Proposed Procedures p Portacath Placement 95634 c78.7(Not Applicable) - Jose Chen MD Familial anesthetic complications: None Was Beta Kassandra taken within 24 hours: Yes Was Clonidine taken within 24 hours: N/A Last intake: Intake Last Liquid Date 08/26/20 Last Liquid Time 09:30 Last Solid Date 08/25/20 Last Solid Time 22:00 Social: Social History: No alcohol and No tobacco Exam: Pre-Anes Outpt Exam: alert, oriented x 3, clear to auscultation bilaterally and regular rate & rhythm Airway: Cervical ROM: WNL MP: 2 Dentition: Other (poor dentition, mulitple missing) CV/HEM: CV/HEM: CAD and HTN Comments: Aorti cstenosis Metabolic: Metabolic: DM Anesthetic Plan: ASA status: 3 Anesthesia: MAC Risk of > 500 ml blood loss (7ml/kg in children): No PFSH Anesthesia PFSH: Medical History Aortic valve stenosis Diabetes mellitus Gout HTN (hypertension) Hyperlipemia Surgical History (Updated 08/22/20 @ 09:30 by Jose Chen MD) H/O esophagogastroduodenoscopy (08/22/20) EGD with dilation History of colonoscopy 2019 Hx of cataract surgery S/P cardiac cath Family History Father Myocardial infarction CAD (coronary artery disease) Brother Myocardial infarction CAD (coronary artery disease) Mother Myocardial infarction Stroke Diabetes Social History Smoking and tobacco status: former smoker Data Anesthesia Other Labs: Laboratory Results - last 48 hr 08/26/20 13:53 POC Glucose 151 H Cardiac Studies: No Data to Display
[2020-08-26] MEDS: heparin, porcine 1,000 unit/mL INJ 10 mL 10000 UNIT IRRIGATION (14:28)
[2020-08-26] MEDS: lidocaine 1% INJ 20 mL INJECTION (14:28)
--- NOTE | 2020-08-26 15:34 | PM.OP ---
Operative Report Date of procedure: August 26, 2020 Pre-op Diagnosis: Liver metastasis Post-op diagnosis: same Procedure Done: Placement of PowerPort in the left subclavian vein Fluoroscopic guidance and interpretation for placement of catheter Pathology: none sent Surgeon: Jose Chen Anesthesia: MAC Condition: stable Disposition: PACU Procedure: The patient was taken to the Operating Room and the chest and neck bilaterally were prepped and draped in a sterile manner after the antibiotic had been administered and shoulder rolls had been placed. A total of 10 mL of 1% lidocaine with 0.5% Marcaine was infiltrated under the clavicle on the left side at the site of the planned entry into the subclavian vein. An introducer needle was then used to access the subclavian vein under the clavicle and after withdrawing blood syringe was removed and a guidewire passed under fluoroscopy into the superior vena cava. The site of the planned port was then marked on the chest and a 15 blade was used to make a 3 cm skin incision this was extended into the subcutaneous tissue using electrocautery and a subcutaneous pocket over the pectoralis fascia was created 2-0 Vicryl suture was used to suture the port to the pectoral fascia in the pocket on 3 sides. The catheter, after having been flushed with hep saline, was attached to the tunneler and a tunnel created between the port site and the subclavian vein entry site. Under fluoroscopy the dilator sheath was passed over the guidewire into the proximal superior vena cava. The inner dilator was removed and the sheath left behind and~ the catheter was introduced through the peel-away sheath with the tip in the superior vena cava. The peel-away sheath was removed. The proximal end of the catheter was cut to the right size and was attached to the port. Using a Givens needle the port was accessed, it withdrew blood easily and flushed easily. A final 5cc of heparin was used to flush the PowerPort. The subcutaneous tissue was approximated using interrupted 3-0 Vicryl sutures and the skin at the introducer site and the port site was closed using subcuticular running 4-0 Monocryl sutures. Surgical glue was applied and the patient was stable throughout the procedure. Fluoroscopic guidance and interpretation was performed for introduction of the guidewire in the left subclavian vein, passage of dilator and placement of catheter tip in the distal superior vena cava.
--- NOTE | 2020-08-26 15:48 | ANE.PACU2 ---
Inpatient post-anesthesia follow up: Airway intact: Yes Vital signs: Temperature 97.7 F Pulse Rate 76 Respiratory Rate 18 Blood Pressure 121/73 Pulse Oximetry 96 Oxygen Delivery Me thod Room Air Oxygen Flow Rate Fraction of Inspir ed Oxygen Hydration adequate: Yes Nausea and vomiting: No Pain level: 2 Mental status: Baseline
== END 2020-08-26 15:55 | disposition home or self-care (01) ==
PROVIDERS: PCP Internal Medicine; Visit Provider Surgery
PROC: (CPT 36561; principal; 2020-08-26 14:15)
DX: C78.7 Secondary malignant neoplasm of liver and intrahepatic bile duct (principal); I25.10 Atherosclerotic heart disease of native coronary artery without angina pectoris; I10 Essential (primary) hypertension; E11.9 Type 2 diabetes mellitus without complications; E78.5 Hyperlipidemia, unspecified; Z87.891 Personal history of nicotine dependence; Z82.49 Family history of ischemic heart disease and other diseases of the circulatory system; Z83.3 Family history of diabetes mellitus; Z82.3 Family history of stroke
CPT/HCPCS: 36561; 36416; 76000; 77001; 82962; C1788; J0690; J1644; J2704; J3010; J3490

== ENCOUNTER 2020-09-03 13:11 | Outpatient (CLI) | payer MEDICARE, SELFPAY ==
--- NOTE | 2020-09-03 17:10 | ONC FU_ITS ---
Dr. Louie follow up note Patient: Jose Bocanegra Unit #: [id number]: 1945 Dicatated By: Collette Louie M.D.Date of Visit:September 03, 2020 Onc Med Follow-up/Prog Note History of Present Illness: Mr. Jose Bocanegra, is a 74-year-old gentleman with history of poor taste abdominal discomfort and about 40 pound weight loss since September 2019, as per patient he used to weigh 233 pounds now down to 185 pounds also complaining of excessive, off and on dysphagia. Denies any abdominal pain, denies any melena or hematochezia, denies any hemoptysis or hematemesis as per patient, he had a colonoscopy done in 2019 But it was suboptimal study because of sigmoid stricture and colonoscopy was not advanced further subsequently underwent barium enema which showed narrowing of sigmoid colon secondary to chronic diverticulosis, patient was evaluated by PMD for above mentioned symptoms and underwent CT scan of abdomen pelvis on July 24, 2020 which showed irregular mass centered in left lobe of liver measuring 4.7 x 8.7 x 5.6 cm. There are additional scattered nodules suspicious for metastatic disease. Bilateral lower lobe pulmonary nodules and lymph nodes along the right pulmonary ligament. There is a moderate nodularity and thickening of the omentum consistent with peritoneal carcinomatosis. Numerous small scattered lymph nodes within the mesentery and retroperitoneum. Multifocal area of abnormality within the colon, stricture near the hepatic flexure. There is a significant wall thickening and diverticular disease involving the descending and sigmoid colon. Additional circumstantial thickening involving antrum of stomach could be neoplastic.And lab work-up done on July 25, 2020 shows white blood count 8 hemoglobin 14 hematocrit 42.5 platelets 125,000 with a normal differential CEA 1.8, on August 06, 2020 he underwent sonogram guided liver biopsy which confirmed adenocarcinoma immunohistochemistry showed CK7 positive and p63 and weakly positive otherwise negative for CEA, CDX2, CK 5/6, CK20, Napsin, TTF-1, PIN 4,, as per pathology based on metastatic carcinoma being CK positive, CK20 negative and TTF-1 negative possibility of lung primary or colon primary is less likely but gastric adenocarcinoma, pancreatic subtype or an extrahepatic carcinoma bile duct is high on the differential. Patient underwent CT PET scan on August 03, 2020 which showed questionable sigmoid colon mass, extensive hepatic metastatic disease, malignant adenopathy in mediastinum, mesenteric, retroperitoneal area. Malignant omental implants and carcinomatosis. Malignant bilateral pulmonary nodules. 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 Came for follow-up, denies any significant complaints except abdominal distention but no abdominal pain, no jaundice, no diarrhea or constipation, no melena or hematochezia, no hemoptysis or hematemesis, no shortness of breath. Patient has Port-A-Cath placement Medications: Allopurinol 1 Tablet (of 100 mg) Oral b.i.d., Cod Liver Oil 1 Capsule (of 1000 mg) Oral daily, glipiZIDE 1 Tablet (of 5 mg) Oral b.i.d., Isosorbide Mononitrate ER 1 Tablet (of 30 mg) Tablet SR 24 HR Oral daily, Lisinopril 1 Tablet (of 20 mg) Oral daily, metFORMIN HCl 1 Tablet (of 1000 mg) Oral b.i.d., Metoprolol Succinate ER 0.5 Tablet (of 25 mg) Tablet SR 24 HR Oral daily, Niacin 1 Tablet (of 500 mg) Oral daily, Simvastatin 1 Tablet (of 40 mg) Oral daily Allergies: No Known Allergies. Review of Systems: Review of Systems is not available for this patient. Vital Signs: Performed on September 03, 2020 13:28 Weight - 181.8 lbs (LOW) BSA - 0.00 sq.m BMI - 0.00 Temperature - 97.0 F (LOW) Pulse - 88 /min Respiration - 18 /min BP - 133/72 mm(hg) O2 Sat - 92 % (LOW) Pain - 0 Performance Status: 1 - No physically strenuous activity, but ambulatory and able to carry out light or sedentary work (e.g. office work, light house work). (ECOG) Physical Examination: ENMT - No mouth sores, no thrush, no jaundiceSinuses are nontender. No oral exudates, ulcers, masses, thrush or mucositis. Oropharynx clear. Tongue normal, Respiratory - Lungs are clear to auscultation , Cardiovascular - Regular rate and rhythm of heart, Abdomen - Soft, bowel sounds present, abdomen distended with fluid shift, nontender, Extremities - No visible edema. Lab/Imaging: Most recent lab results are not available for this patient. Impression: Metastatic carcinoma, As per cancer type ID cholangiocarcinoma with 90% probability, per sonogram guided liver biopsy done on August 06, 2020, immunohistochemistry stain positive for CK7 but negative for CEA, CDX2, CK 5/6, CK20, Napsin, TTF-1, PIN 4, Guardant 360 showed tumor mutational burden less than 10 and MSI -high not detected, PD-L1 less than 1% but alteration in LEISA splice site SNV CT PET scan done on August 03 2020 showed questionable sigmoid colon mass, extensive metastatic disease in the liver dominant lesion in the left hepatic lobe demonstrating significant central necrosis measuring 9.6 x 5.4 cm SUV of 10. FDG positive soft tissue omental implants and omental stranding is consistent with carcinomatosis. Bilateral FDG positive retroperitoneal nodes down to the level of aortic bifurcation and extensive mesenteric lymphadenopathy. Intensive sigmoid colonic uptake suggestive of malignancy also noted FDG positive mediastinal nodes consistent with malignancy and bilateral pulmonary nodules, are FDG positive Diabetes mellitus, hypertension, aortic stenosis Plan: Discussed with patient and his son regarding molecular profiling, cancer type ID results which confirmed cholangiocarcinoma with 90% probability and guardant 360 showed tumor mutational burden less than 10, MSI H not detected, PD-L1 less than 1% thus not a candidate for upfront Immunotherapy and in that case, we will consider palliative chemotherapy with weekly gemcitabine/Abraxane, if not tolerated, will consider oral Xeloda. Patient and his son William were informed about prognosis, which is guarded and hospice was also discussed briefly. Patient wants to try treatment, as long as tolerated. The side effect possible benefits associated with gemcitabine/Abraxane including but not limited to bone marrow suppression, peripheral neuropathy, thrombocytopenia especially with gemcitabine, nausea vomiting, hair loss were mentioned, further teaching will be done by chemotherapy nurse, will obtain approval from his insurance prior to the treatment and then consider gemcitabine/Abraxane weekly x2 then week off and then repeat the cycle. Patient return to clinic 1 week after initiation of systemic therapy with gemcitabine/Abraxane, with CBC CMP Signed By: Collette Louie M.D. <<Signature on File>>
== END 2020-09-03 13:12 | disposition home or self-care (01) ==
LOC: ONCMED 13:14
PROVIDERS: PCP Internal Medicine; Visit Provider Internal Medicine Hematology & Oncology
DX: I35.0 Nonrheumatic aortic (valve) stenosis (principal); I10 Essential (primary) hypertension; E11.9 Type 2 diabetes mellitus without complications; Z79.84 Long term (current) use of oral hypoglycemic drugs
CPT/HCPCS: 99214

== ENCOUNTER 2020-09-19 12:55 | Outpatient (CLI) | payer MEDICARE, SELFPAY ==
[2020-09-19 15:01] LABS: Basophils # 0.1 10^3/uL (0.0-0.1); Basophils % 0.9 %; Eosinophils # 0.8 10^3/uL (0.0-0.8); Eosinophils % 7.9 %; Hematocrit 40.9 % (42.0-52.0); Hemoglobin 13.2 g/dL (11.7-16.6); Lymphocytes # 1.4 10^3/uL (0.8-4.8); Lymphocytes % 14.6 %; Mean Corpuscular HGB Conc 32.3 g/dL (30.0-36.0); Mean Corpuscular Hemoglobin 30.1 pg (28.0-34.0); Mean Corpuscular Volume 93.4 fL (80-94); Mean Platelet Volume 11.7 fL (7.4-10.4); Monocytes # 0.9 10^3/uL (0.2-0.9); Monocytes % 9.3 %; Neutrophils # 6.37 10^3/uL (1.8-7.7); Neutrophils % 66.8 %; Nucleated Red Blood Cells % 0 %; Platelet Count 122 10^3/cmm (130-400); Red Blood Count 4.38 10^6/uL (4.1-5.3); Red Cell Distribution Width 15.6 % (12.1-15.1); White Blood Count 9.5 10^3/uL (4.0-10.0)
[2020-09-19 15:20] LABS: Alanine Aminotransferase 24 U/L (0-41); Albumin Level 3.9 g/dL (3.5-5.2); Alkaline Phosphatase 227 IU/L (40-130); Anion Gap 15.4 (5-19); Aspartate Amino Transferase 46 U/L (0-40); Blood Urea Nitrogen 15 mg/dL (8-23); Calcium 11.2 mg/dL (8.5-10.5); Carbon Dioxide 25 mmol/L (22-29); Chloride 100 mmol/L (98-107); Globulin 3.2 g/dL (1.3-4.6); Glucose 144 mg/dL (65-115); Osmolality Calculated 285 mOsm/kg (285-295); Potassium 4.4 mmol/L (3.5-5.1); Sodium 136 mmol/L (136-145); Total Bilirubin 0.3 mg/dL (0.15-1.2); Total Protein 7.1 g/dL (6.6-8.7)
[2020-09-19] MEDS: sodium chloride 0.9% 250 ML 75 ML IV (16:12)
[2020-09-19] MEDS: famotidine 20 mg/2 mL INJ IVP (16:12)
[2020-09-19] MEDS: palonosetron 0.25 mg/5 mL SDV IV (16:14)
== END 2020-09-19 12:56 | disposition home or self-care (01) ==
LOC: ONCMED 12:58
PROVIDERS: PCP Internal Medicine; Visit Provider Internal Medicine Hematology & Oncology
DX: Z51.11 Encounter for antineoplastic chemotherapy (principal); C24.0 Malignant neoplasm of extrahepatic bile duct; C78.7 Secondary malignant neoplasm of liver and intrahepatic bile duct; E11.9 Type 2 diabetes mellitus without complications; I10 Essential (primary) hypertension; I35.0 Nonrheumatic aortic (valve) stenosis
CPT/HCPCS: 80053; 85025; 96367; 96375; 96413; 96417; J1100; J2469; J3490; J7050; J9201; J9264

== ENCOUNTER 2020-09-22 07:30 | Emergency (ER) | payer MEDICARE, SELFPAY ==
[2020-09-22] VITALS (8 sets, daily range): BP systolic 103–123; BP diastolic 55–72; PULSE 111–125; RESP 18–28; TEMP 37–37.1; O2SAT 93–95; BMI 27.3
--- NOTE | 2020-09-22 07:54 | ED_ITS ---
HPI - Abdominal Pain General: Chief Complaint: Abdominal Pain Stated Complaint: fall, weakness , abdomen and back pain post chemo Time Seen by Provider: 09/22/20 07:49 History of Present Illness: HPI narrative: This patient is a 74-year-old male with a history of liver and esophageal cancer who is undergoing chemotherapy presents to the emergency department for generalized weakness and orthostatic falls. Patient also describes a little bit of abdominal discomfort that he has chronically. Some mild ascites which she does have chronically. Patient states she just feels so weak since finishing chemotherapy a few days ago. Patient states he has had a loose stool. Will do medical evaluation treat as needed MD elicited complaint: abdominal pain Pain Consistency: constant Location: Diffuse Associated Symptoms: Reports diarrhea and nausea; Denies chills, dysuria, fever(s) and vomiting Review of Systems General: Reports: 10 or more systems reviewed and unremarkable except in HPI and below Const: Denies: fever(s), chills, body aches or fatigue Eyes: Denies: change in vision or blurry vision ENMT: Denies: throat pain, hoarseness or mouth pain Card: Denies: chest pain, palpitations, irregular heart rhythm, edema, swelling of feet/ankles or lightheadedness Resp: Denies: dyspnea, productive cough, non-productive cough, wheezing or pain on inspiration GI: Reports: abdominal pain, nausea and diarrhea; Denies: vomiting : Denies: flank pain, dysuria, urinary frequency, urinary urgency or urinary hesitancy Musc: Denies: neck pain, back pain, extremity pain, extremity swelling, joint pain, joint swelling, joint redness, joint warmth or limited range of motion Skin/Breast: Denies: rash, pruritus, erythema or skin tenderness Neuro: Denies: headache(s), numbness in extremities or weakness in extremities Psych: Denies: anxiety or depression PFSH ED PFSH: Medical History Aortic valve stenosis Diabetes mellitus Gout HTN (hypertension) Hyperlipemia Surgical History H/O esophagogastroduodenoscopy (08/22/20) EGD with dilation History of colonoscopy 2019 Hx of cataract surgery S/P cardiac cath Family History Father Myocardial infarction CAD (coronary artery disease) Brother Myocardial infarction CAD (coronary artery disease) Mother Myocardial infarction Stroke Diabetes Social History Smoking and tobacco status: former smoker Physical Exam Const: COMMON NORMALS: no acute distress, average body habitus, patient oriented x3, no limitations, healthy appearing, alert and well nourished HENMT: COMMON NORMALS: normocephalic, atraumatic, hearing grossly normal bilaterally, external ears normal, EAC's normal, TM's normal bilaterally, Normal external nose present, Normal nasal mucous membranes and turbinates present, moist oral mucous membranes, oropharynx normal, dentition normal and gingiva normal HEAD & SCALP: normocephalic and atraumatic NOSE: Normal external nose present and Normal nasal mucous membranes and turbinates present EXTERNAL EAR: Yes external ears normal EXTERNAL AUDITORY CANAL: EAC's normal TYMPANIC MEMBRANE: TM's normal bilaterally Neck/C-Spine: COMMON NORMALS: full ROM, no lymphadenopathy, supple, no meningeal signs, no JVD, Thyroid normal and No carotid bruits THYROID: Thyroid normal Chest: COMMONS NORMALS: normal inspection of the chest, normal palpation of entire chest wall, normal inspection of the breasts and normal palpation of the breasts Breast/axilla inspection: Yes normal inspection of the breasts BREAST/AXILLA PALPATION: Yes normal palpation of the breasts Resp: COMMON NORMALS: normal respiratory effort, No retractions, No use of accessory muscles, clear to auscultation bilaterally and percussion normal AUSCULTATION: clear to auscultation bilaterally PERCUSSION: percussion normal Cardio: COMMON NORMALS: no JVD, regular rhythm, S1 normal heart sound present, S2 normal heart sound present, No gallops present (Cardio), No clicks present (Cardio), No murmurs present (Cardio), No rub (Cardio) and Peripheral pulses 2+ throughout RATE: tachycardic RHYTHM: regular rhythm HEART SOUNDS: S1 normal heart sound present and S2 normal heart sound present PERIPHERAL PULSES: Peripheral pulses 2+ throughout GI: COMMON NORMALS: Soft to palpation, No hepatosplenomegaly present, no masses and no bruits INSPECTION: Yes abdominal distension and Yes Fluid wave present PALPATION: Yes Soft to palpation, Yes Tenderness to palpation present (GI) and Yes No hepatosplenomegaly present PERCUSSION: Fluid wave present : COMMON NORMALS: Yes no CVA tenderness BLADDER/KIDNEY EXAM: Yes no CVA tenderness Back/Pelvis: COMMON NORMALS: no CVA tenderness, thoracic and lumbar spine normal to inspection, no thoracic nor lumbar tenderness, thoraco-lumbar ROM normal and straight leg raise negative bilaterally Extremity: COMMON NORMALS: normal to inspection, full ROM, capillary refill normal, no joint enlargement, no clubbing, cyanosis or edema, no calf tenderness and no pedal edema Neuro: COMMON NORMALS: patient oriented x3 SENSORIUM/ORIENTATION: Yes alert MENINGEAL SIGNS: Yes no meningeal signs Course Reevaluation(s): Reevaluation #1: I did discuss at length with patient and family about concerns of dehydration related to chemotherapy treatment because patient has metastatic liver disease. Patient states he feels much improved after IV fluids and nausea medication requested be discharged home patient also received morphine for abdominal pain. Patient does have hydrocodone at home but states he does not have any Zofran. Patient has been try to take Ensure shakes. Patient states the chemotherapy was pretty rough patient is on at his first dose on . Patient states he does have an appointment with his PCP in 3 days. Discussed at length with patient options and patient be discharged home per her request. At the time of discharge patient mentions that he stubbed his toe last night walking to the bathroom. And on evaluation appears the patient does have about a 3 cm laceration at the base of the right great toe. This wound is greater than 8 hours old. No active bleeding. Patient fully moves his left toe with no significant bruising offered x-ray but the patient declines. We did discuss leg with patient about options. Unable to suture told due to being on the 6-hour window. Patient still will be cleaned and dressed by nursing staff with triple antibiotic ointment. Will place the patient on oral antibiotics. Patient is to change dressings daily. Patient and family state understanding Vital Signs: Vital signs: Vital Signs Temperature 98.6 F 09/22/20 07:39 Pulse Rate 114 H 09/22/20 10:00 Respiratory Rate 18 09/22/20 10:00 Blood Pressure 103/55 09/22/20 10:00 Pulse Oximetry 95 09/22/20 10:00 MDM - Abdominal Pain MDM Narrative: Medical decision making narrative: This patient is a 74-year-old male with a history of liver and esophageal cancer who is undergoing chemotherapy presents to the emergency department for generalized weakness and orthostatic falls. Patient also describes a little bit of abdominal discomfort that he has chronically. Some mild ascites which she does have chronically. Patient states she just feels so weak since finishing chemotherapy a few days ago. Patient states he has had a loose stool. I did discuss at length with patient and family about concerns of dehydration related to chemotherapy treatment because patient has metastatic liver disease. Patient states he feels much improved after IV fluids and nausea medication requested be discharged home patient also received morphine for abdominal pain. Patient does have hydrocodone at home but states he does not have any Zofran. Patient has been try to take Ensure shakes. Patient states the chemotherapy was pretty rough patient is on at his first dose on . Patient states he does have an appointment with his PCP in 3 days. Discussed at length with patient options and patient be discharged home per her request. At the time of discharge patient mentions that he stubbed his toe last night walking to the bathroom. And on evaluation appears the patient does have about a 3 cm laceration at the base of the right great toe. This wound is greater than 8 hours old. No active bleeding. Patient fully moves his left toe with no significant bruising offered x-ray but the patient declines. We did discuss leg with patient about options. Unable to suture told due to being on the 6-hour window. Patient still will be cleaned and dressed by nursing staff with triple antibiotic ointment. Will place the patient on oral antibiotics. Patient is to change dressings daily. Patient and family state understanding Patient history unchanged does have metastatic liver cancer involving the omentum and gastritis. Patient is on chemotherapy appear to be get a little dehydrated. Sodium 127. I did discuss at length with patient patient is feeling much improved after IV fluids and nausea medication. Patient is to continue all home medications patient request to be discharged home. Patient has a follow-up appointment with his PCP in 3 days. Patient is to make that appointment. Patient be discharged home on Zofran patient is to encourage p.o. fluids patient and family state understanding. Patient is to return to the emergency department symptoms fail to improve or worsen. Differential Diagnosis: Differential diagnosis abdominal pain: Likely abdominal pain Medical Records: Attestation: I reviewed the patient's medical records. Lab Data: Attestation: I reviewed the patient's lab results. Labs: Lab Results 09/22/20 09/22/20 Range/Units 08:06 08:06 WBC 12.3 H (4.0-10.0) 10^3/ uL RBC 3.90 L (4.1-5.3) 10^6/u L Hgb 11.7 (11.7-16.6) g/dL Hct 35.4 L (42.0-52.0) % MCV 90.8 (80-94) fL MCH 30.0 (28.0-34.0) pg MCHC 33.1 (30.0-36.0) g/dL RDW 15.3 H (12.1-15.1) % Plt Count 93 L (130-400) 10^3/c mm MPV 12.6 H (7.4-10.4) fL Neut % (Auto) 92.2 % Lymph % (Auto) 6.0 % [place] % (Auto) 0.6 % Eos % (Auto) 0.2 % Baso % (Auto) 0.5 % Neut # (Auto) 11.38 H (1.8-7.7) 10^3/u L Lymph # (Auto) 0.7 L (0.8-4.8) 10^3/u L [place] # (Auto) 0.1 L (0.2-0.9) 10^3/u L Eos # (Auto) 0.0 (0.0-0.8) 10^3/u L Baso # (Auto) 0.1 (0.0-0.1) 10^3/u L Nucleated RBC % (a uto) 0 % Nucleated RBCs # 0.0 /100WBC Sodium 127 L (136-145) mmol/L Potassium 3.9 (3.5-5.1) mmol/L Chloride 93 L (98-107) mmol/L Carbon Dioxide 24 (22-29) mmol/L Anion Gap 13.9 (5-19) BUN 18 (8-23) mg/dL Creatinine 0.7 (0.7-1.2) mg/dL GFR Calculation Not Reportable Glucose 192 H (65-115) mg/dL Calculated Osmolal ity 271 L (285-295) mOsm/k g Calcium 10.6 H (8.5-10.5) mg/dL Total Bilirubin 0.8 (0.15-1.2) mg/dL AST 97 H (0-40) U/L ALT 58 H (0-41) U/L Alkaline Phosphata se 191 H (40-130) IU/L Total Protein 7.0 (6.6-8.7) g/dL Albumin 3.4 L (3.5-5.2) g/dL Globulin 3.6 (1.3-4.6) g/dL Lipase 31 (13-60) U/L Imaging Data ^: CT Abd/Pel: Attestation: I personally reviewed and interpreted this imaging study as follows: Radiologist's impression: IMPRESSION: 1. Hepatic metastatic disease with enlargement of the dominant mass in the left lobe of the liver. 2. Increase in malignant ascites with signs of peritoneal carcinomatosis and omental implants. 3. Colonic diverticulosis. 4. Gastric antral wall thickening. Consider gastritis or involvement with neoplasm. 5. Pulmonary metastatic disease. EKG Data ^: EKG 1: Attestation: I personally reviewed and interpreted this EKG as follows: EKG interpretation date: 09/22/20 EKG interpretation time: 07:51 Prior EKG tracings: available for review Interpretation: Sinus tachycardia heart rate 123 nonspecific EKG changes Discharge Plan Discharge Patient Disposition: Home Clinical Impression: Metastatic cancer to liver, Abdominal pain, Dehydration, mild, Ascites, Hyponatremia, Chemotherapy-induced diarrhea, Laceration of toe Condition: Stable Prescriptions: New doxycycline hyclate 100 mg capsule 100 mg PO BID 7 Days Qty: 14 RF: 0 ondansetron 4 mg tablet,disintegrating 4 mg PO DAILY PRN (Reason: nausea and vomiting) 4 Days RF: 0 No Action metformin 1,000 mg tablet 1,000 mg PO BID RF: 0 lisinopril 20 mg tablet 20 mg PO DAILY RF: 0 allopurinol 100 mg tablet 100 mg PO BID RF: 0 simvastatin 40 mg tablet 40 mg PO DAILY RF: 0 niacin 500 mg tablet 500 mg PO DAILY RF: 0 aspirin [Adult Low Dose Aspirin] 81 mg tablet,delayed release (DR/EC) 81 mg PO DAILY RF: 0 cod liver oil Oil 5 ml PO DAILY RF: 0 isosorbide mononitrate 30 mg tablet extended release 24 hr 15 mg PO BID Qty: 90 RF: 3 nitroglycerin [Nitrostat] 0.4 mg tablet, sublingual 0.4 mg sublingual Q5M PRN (Reason: chest pain) Qty: 50 RF: 3 metoprolol succinate 25 mg tablet extended release 24 hr 12.5 mg PO DAILY Qty: 30 RF: 2 pantoprazole 40 mg tablet,delayed release (DR/EC) See Rx Instructions .ROUTE .COMPLEX Qty: 28 RF: 3 Colace 100 mg capsule 100 mg PO BID Qty: 30 RF: 0 hydrocodone-acetaminophen 5-325 mg tablet 1 tab PO Q6H PRN (Reason: pain) Qty: 20 RF: 0 Zofran 4 mg tablet 4 mg PO Q6H PRN (Reason: nausea and vomiting) Qty: 20 RF: 0 Discharge Orders: Discharge ED (Routine); Ordered 09/22/20 Ordered By: Masood Bridges Referrals: Jessica Shaw MD [Primary Care Provider] - Discharge Diet: Advance as tolerated Discharge Activity: Increase activity as tolerated Patient Instructions: Abdominal Pain (ED), Opioid Safety Activity Restrictions/Additional Instructions: Encourage p.o. fluids. Take medications as prescribed for nausea vomiting and pain. Clean and dress toe change best bandages twice daily. Monitor healing process closely and watch for signs of infection. We have been given a p rescription for doxycycline which is an oral antibiotic to help prevent infection. Take this medication as prescribed. Follow-up with PCP in 3 days as a scheduled have them evaluate wound to make sure no signs of infection since you are on chemotherapy. Return to the emergency department if symptoms fail to improve or worsen. Coding Level of Care Code ED Financial Aid Administrator for Jacob Coello Exam Comprehensive
--- NOTE | 2020-09-22 07:54 | ECG_ITS ---
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 Measurements Intervals [place] Rate: 123 P: 57 MN: 174 QRS: 46 QRSD: 101 T: 42 QT: 413 QTc: 593 Interpretive Statements SINUS TACHYCARDIA No previous ECG available for comparison Electronically Signed On 09-22-2020 22:14:13 CDT by William Peters M.D. [email or web address]
--- NOTE | 2020-09-22 07:58 | CTR_ITS ---
PROCEDURE INFORMATION: Exam: CT Abdomen And Pelvis With Contrast Exam date and time: 09/22/2020 8:39 AM Age: 74 years old Clinical indication: Abdominal pain; Generalized; Patient HX: HX liver and pancreatic cancer, on chemo; Additional info: Abd pain TECHNIQUE: Imaging protocol: Computed tomography of the abdomen and pelvis with contrast. Radiation optimization: All CT scans at this facility use at least one of these dose optimization techniques: automated exposure control; mA and/or kV adjustment per patient size (includes targeted exams where dose is matched to clinical indication); or iterative reconstruction. Contrast material: OMNIPAQUE 300; Contrast volume: 95 ml; Contrast route: INTRAVENOUS (IV); COMPARISON: CT abdomen pelvis w con* [id number] 07/24/2020 1:18 PM RADIATION DOSE METRICS: Total DLP (mGy-cm): 1694.88 FINDINGS: Lungs: Dominant noncalcified right lower lobe pulmonary nodule unchanged in size. Other smaller pulmonary nodules consistent with pulmonary metastatic disease. Bilateral posteromedial bronchiectasis. Liver: Ill-defined dominant mass in the left lobe of the liver, now measuring up to approximately 10.3 cm in size consistent with malignancy. Additional smaller low-attenuation lesions compatible with metastatic disease. Gallbladder and bile ducts: No calcified gallstones, gallbladder wall thickening, or pericholecystic inflammation. No biliary ductal dilation. Pancreas: No pancreatic ductal dilatation. No peripancreatic inflammation. No pancreatic mass identified. Spleen: The spleen is homogeneous and is not enlarged. Adrenal glands: No adrenal mass. Kidneys and ureters: No nephrolithiasis. No hydronephrosis. Dominant simple appearing left renal cyst measuring approximately 5.3 cm in size. Stomach and bowel: There is gastric antral wall thickening which appears to be worse than on the prior exam. This could be due to antral gastritis. However, This is spatially related to the dominant mass in the left lobe of the liver. Therefore, also consider the possibility of neoplastic involvement. There is diverticulosis, most prominently in the sigmoid colon. No bowel obstruction. There are omental implants compatible with peritoneal malignancy. Appendix: No evidence of appendicitis. Intraperitoneal space: Moderate volume free intraperitoneal fluid having increased in volume in the interval. There are peritoneal nodules compatible with peritoneal carcinomatosis. No pneumoperitoneum. Vasculature: There is coronary artery disease. No abdominal aortic aneurysm. The mesenteric arteries are patent. The mesenteric, portal, and hepatic veins are patent. There are large omental collateral veins draining into the superior mesenteric vein. Lymph nodes: There is pericardial/lower anterior mediastinal lymphadenopathy. There is portal lymphadenopathy. Slightly prominent retroperitoneal lymph nodes. Urinary bladder: Small volume urinary bladder. Reproductive: Unremarkable as visualized. Bones/joints: Multilevel bridging osteophytes in the thoracic spine. Multilevel disc degeneration and facet arthropathy in the lower lumbar spine. Soft tissues: No acute soft tissue abnormality. CT/CT abdomen pelvis w con* [id number] IMPRESSION: 1. Hepatic metastatic disease with enlargement of the dominant mass in the left lobe of the liver. 2. Increase in malignant ascites with signs of peritoneal carcinomatosis and omental implants. 3. Colonic diverticulosis. 4. Gastric antral wall thickening. Consider gastritis or involvement with neoplasm. 5. Pulmonary metastatic disease. COMMENTS: Consistent with the [employer]'s Incidental Findings Committee white paper (J Am Leslie Radiol 2018): Any incidental renal lesion less than 1 cm or classified as too small to characterize, or any incidental cystic renal lesion characterized as simple-appearing, is likely benign. No follow-up imaging is recommended for these lesions per consensus recommendations based on imaging criteria. Radiation Dose CTDIVOL = (mGy): DLP = 1694.88 (mGy-cm)
[2020-09-22 08:16] LABS: Basophils # 0.1 10^3/uL (0.0-0.1); Basophils % 0.5 %; Eosinophils % 0.2 %; Hematocrit 35.4 % (42.0-52.0); Hemoglobin 11.7 g/dL (11.7-16.6); Lymphocytes # 0.7 10^3/uL (0.8-4.8); Mean Corpuscular HGB Conc 33.1 g/dL (30.0-36.0); Mean Corpuscular Volume 90.8 fL (80-94); Mean Platelet Volume 12.6 fL (7.4-10.4); Monocytes # 0.1 10^3/uL (0.2-0.9); Monocytes % 0.6 %; Neutrophils # 11.38 10^3/uL (1.8-7.7); Neutrophils % 92.2 %; Nucleated Red Blood Cells % 0 %; Red Cell Distribution Width 15.3 % (12.1-15.1); White Blood Count 12.3 10^3/uL (4.0-10.0)
[2020-09-22] MEDS: morphine 4 mg/mL SDV 1 mL 2 MG IVP (08:17)
[2020-09-22] MEDS: ondansetron 2 mg/ML SDV 2 mL 4 MG IVP (08:18)
[2020-09-22] MEDS: sodium chloride 0.9% 1,000 ML 999 ML IV (08:18)
[2020-09-22 08:30] LABS: Platelet Count 93 10^3/cmm (130-400)
[2020-09-22 08:31] LABS: Slide Review Slide Review Perform
[2020-09-22 08:33] LABS: Alanine Aminotransferase 58 U/L (0-41); Albumin Level 3.4 g/dL (3.5-5.2); Alkaline Phosphatase 191 IU/L (40-130); Anion Gap 13.9 (5-19); Aspartate Amino Transferase 97 U/L (0-40); Blood Urea Nitrogen 18 mg/dL (8-23); Calcium 10.6 mg/dL (8.5-10.5); Carbon Dioxide 24 mmol/L (22-29); Chloride 93 mmol/L (98-107); Globulin 3.6 g/dL (1.3-4.6); Glucose 192 mg/dL (65-115); Lipase 31 U/L (13-60); Osmolality Calculated 271 mOsm/kg (285-295); Potassium 3.9 mmol/L (3.5-5.1); Sodium 127 mmol/L (136-145); Total Bilirubin 0.8 mg/dL (0.15-1.2)
[2020-09-22] MEDS: iohexol 300 mg/mL 100 mL Btl IV (08:49)
[2020-09-22] MEDS: neomycin-poly-bacitracin oint 0.9 gm Pkt 1 APPLIC TOPICAL (10:37)
[2020-09-22] MEDS: sodium chloride 0.9% 500 ML IV (10:37)
== END 2020-09-22 11:05 | disposition home or self-care (01) ==
PROVIDERS: Emergency Provider Emergency Medicine; PCP Internal Medicine
DX: R18.8 Other ascites (principal); R10.9 Unspecified abdominal pain; E86.0 Dehydration; E87.1 Hypo-osmolality and hyponatremia; C15.9 Malignant neoplasm of esophagus, unspecified; C78.7 Secondary malignant neoplasm of liver and intrahepatic bile duct; K52.1 Toxic gastroenteritis and colitis; T45.1X5A Adverse effect of antineoplastic and immunosuppressive drugs, initial encounter; S91.119A Laceration without foreign body of unspecified toe without damage to nail, initial encounter; Z79.84 Long term (current) use of oral hypoglycemic drugs; Z79.82 Long term (current) use of aspirin; E11.9 Type 2 diabetes mellitus without complications; I10 Essential (primary) hypertension; E78.5 Hyperlipidemia, unspecified; Z87.891 Personal history of nicotine dependence; X58.XXXA Exposure to other specified factors, initial encounter
CPT/HCPCS: 74177; 80053; 83690; 85025; 93005; 96361; 96374; 96375; 99284; J2270; J2405; J7030; J7040; Q9967

== ENCOUNTER 2020-10-15 09:55 | Outpatient (RCR) | payer MEDICARE, SELFPAY ==
[2020-09-25 16:04] LABS: Basophils % 0.6 %; Eosinophils # 0.4 10^3/uL (0.0-0.8); Eosinophils % 6.5 %; Hematocrit 37.3 % (42.0-52.0); Hemoglobin 12.1 g/dL (11.7-16.6); Lymphocytes # 1.2 10^3/uL (0.8-4.8); Lymphocytes % 17.6 %; Mean Corpuscular HGB Conc 32.4 g/dL (30.0-36.0); Mean Corpuscular Hemoglobin 29.8 pg (28.0-34.0); Mean Corpuscular Volume 91.9 fL (80-94); Mean Platelet Volume 11.2 fL (7.4-10.4); Monocytes # 0.6 10^3/uL (0.2-0.9); Monocytes % 8.4 %; Neutrophils # 4.53 10^3/uL (1.8-7.7); Neutrophils % 66.3 %; Nucleated Red Blood Cells % 0 %; Platelet Count 112 10^3/cmm (130-400); Red Blood Count 4.06 10^6/uL (4.1-5.3); Red Cell Distribution Width 15.2 % (12.1-15.1); White Blood Count 6.8 10^3/uL (4.0-10.0)
[2020-09-25 16:45] LABS: Alanine Aminotransferase 38 U/L (0-41); Albumin Level 3.4 g/dL (3.5-5.2); Alkaline Phosphatase 215 IU/L (40-130); Anion Gap 12.5 (5-19); Aspartate Amino Transferase 51 U/L (0-40); Blood Urea Nitrogen 13 mg/dL (8-23); Calcium 10.4 mg/dL (8.5-10.5); Carbon Dioxide 27 mmol/L (22-29); Chloride 97 mmol/L (98-107); Globulin 3.1 g/dL (1.3-4.6); Glucose 163 mg/dL (65-115); Osmolality Calculated 278 mOsm/kg (285-295); Potassium 4.5 mmol/L (3.5-5.1); Sodium 132 mmol/L (136-145); Total Bilirubin 0.4 mg/dL (0.15-1.2); Total Protein 6.5 g/dL (6.6-8.7)
[2020-09-26] MEDS: palonosetron 0.25 mg/5 mL SDV IVP (12:22)
[2020-09-26] MEDS: sodium chloride 0.9% 250 ML IV (12:22)
[2020-09-26] MEDS: famotidine 20 mg/2 mL INJ IVP (12:24)
[2020-09-30] MEDS: sodium chloride 0.9% 1,000 ML 999 ML IV (11:30)
[2020-10-02 15:51] LABS: Basophils % 0.6 %; Eosinophils # 0.1 10^3/uL (0.0-0.8); Eosinophils % 1.7 %; Hematocrit 35.7 % (42.0-52.0); Hemoglobin 11.8 g/dL (11.7-16.6); Lymphocytes # 1.2 10^3/uL (0.8-4.8); Lymphocytes % 18.6 %; Mean Corpuscular HGB Conc 33.1 g/dL (30.0-36.0); Mean Corpuscular Hemoglobin 30.1 pg (28.0-34.0); Mean Corpuscular Volume 91.1 fL (80-94); Mean Platelet Volume 10.4 fL (7.4-10.4); Monocytes # 0.6 10^3/uL (0.2-0.9); Monocytes % 9.6 %; Neutrophils # 4.39 10^3/uL (1.8-7.7); Nucleated Red Blood Cells % 0 %; Platelet Count 110 10^3/cmm (130-400); Red Blood Count 3.92 10^6/uL (4.1-5.3); White Blood Count 6.4 10^3/uL (4.0-10.0)
[2020-10-02] MEDS: sodium chloride 0.9% 1,000 ML 999 ML IV (15:55)
[2020-10-02 16:21] LABS: Alanine Aminotransferase 81 U/L (0-41); Albumin Level 3.3 g/dL (3.5-5.2); Alkaline Phosphatase 245 IU/L (40-130); Anion Gap 14.7 (5-19); Aspartate Amino Transferase 76 U/L (0-40); Blood Urea Nitrogen 15 mg/dL (8-23); Carbon Dioxide 26 mmol/L (22-29); Chloride 98 mmol/L (98-107); Globulin 3.3 g/dL (1.3-4.6); Glucose 194 mg/dL (65-115); Osmolality Calculated 284 mOsm/kg (285-295); Potassium 4.7 mmol/L (3.5-5.1); Sodium 134 mmol/L (136-145); Total Bilirubin 0.3 mg/dL (0.15-1.2); Total Protein 6.6 g/dL (6.6-8.7)
--- NOTE | 2020-10-08 00:58 | ONC FU_ITS ---
Doretha Webber Patient Note Patient: Jose Bocanegra Unit #: [id number]: 1945 Dictated By: Flavio MantillaDate of Visit: Sep 26, 2020 Onc MED Follow-Up/Prog Note Chief Complaint: History of Present Illness: Mr. Jose Bocanegra, is a 74-year-old gentleman with history of poor taste abdominal discomfort and about 40 pound weight loss since September 2019, as per patient he used to weigh 233 pounds now down to 185 pounds also complaining of excessive, off and on dysphagia. Denies any abdominal pain, denies any melena or hematochezia, denies any hemoptysis or hematemesis as per patient, he had a colonoscopy done in 2019 But it was suboptimal study because of sigmoid stricture and colonoscopy was not advanced further subsequently underwent barium enema which showed narrowing of sigmoid colon secondary to chronic diverticulosis, patient was evaluated by PMD for above mentioned symptoms and underwent CT scan of abdomen pelvis on July 24, 2020 which showed irregular mass centered in left lobe of liver measuring 4.7 x 8.7 x 5.6 cm. There are additional scattered nodules suspicious for metastatic disease. Bilateral lower lobe pulmonary nodules and lymph nodes along the right pulmonary ligament. There is a moderate nodularity and thickening of the omentum consistent with peritoneal carcinomatosis. Numerous small scattered lymph nodes within the mesentery and retroperitoneum. Multifocal area of abnormality within the colon, stricture near the hepatic flexure. There is a significant wall thickening and diverticular disease involving the descending and sigmoid colon. Additional circumstantial thickening involving antrum of stomach could be neoplastic. And lab work-up done on July 25, 2020 shows white blood count 8 hemoglobin 14 hematocrit 42.5 platelets 125,000 with a normal differential CEA 1.8, on August 06, 2020 he underwent sonogram guided liver biopsy which confirmed adenocarcinoma immunohistochemistry showed CK7 positive and p63 and weakly positive otherwise negative for CEA, CDX2, CK 5/6, CK20, Napsin, TTF-1, PIN 4,, as per pathology based on metastatic carcinoma being CK positive, CK20 negative and TTF-1 negative possibility of lung primary or colon primary is less likely but gastric adenocarcinoma, pancreatic subtype or an extrahepatic carcinoma bile duct is high on the differential. Patient underwent CT PET scan on August 03, 2020 which showed questionable sigmoid colon mass, extensive hepatic metastatic disease, malignant adenopathy in mediastinum, mesenteric, retroperitoneal area. Malignant omental implants and carcinomatosis. Malignant bilateral pulmonary nodules. 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 Patient has Port-A-Cath placement. Extremities is here today for follow-up. He began his first cycle of chemotherapy with gemcitabine and Abraxane on 09/19/2020. He states he was in the ER over the weekend because a kicked my butt . He presented to the ER on 09/22/2020 with weakness, fall, abdominal and back pain post chemotherapy. He was given antiemetics, hydration and morphine for abdominal pain. He improved with hydration. He complained of 7st the night prior to his ER visit. It was noted that he did have a 3 cm laceration at the base of the right great toe but doing was greater than 8 hours old with no active bleeding with full movement. The site was cleaned and dressed by nursing staff with triple antibiotic ointment and he will was placed on oral antibiotics. He states since having hydration he has felt much better. He is here today for reassessment and consideration of day 8 chemotherapy. He states overall he is feeling much better. He is eating some better although is still using Ensure for nutritional supplement. He denies fever or chills. He has had no nausea or vomiting. He has had no further loose stools. He has had 1 prior to his ER visit on 09/22/2020. He denies any mouth sores, sore throat or difficulty swallowing. He states that he has occasional trouble swallowing but that is no worse than what it has been. He is supplementing with Ensure as above. His ECOG is 2. Past Medical History: Aortic valve stenosis Cataract Gout Hyperlipidemia Hypertension Type II diabetes Past Surgical History: Cataract excision Colonoscopy Covid vaccine #2 in 2020 Covid vaccine #1 in 2020 Allergies: No Known Allergies. Medications: Allopurinol 1 Tablet (of 100 mg) Oral b.i.d. Cod Liver Oil 1 Capsule (of 1000 mg) Oral daily glipiZIDE 1 Tablet (of 5 mg) Oral b.i.d. Isosorbide Mononitrate ER 1 Tablet (of 30 mg) Tablet SR 24 HR Oral daily Lisinopril 1 Tablet (of 20 mg) Oral daily metFORMIN HCl 1 Tablet (of 1000 mg) Oral b.i.d. Metoprolol Succinate ER 0.5 Tablet (of 25 mg) Tablet SR 24 HR Oral daily Niacin 1 Tablet (of 500 mg) Oral daily Simvastatin 1 Tablet (of 40 mg) Oral daily Family History: Social History: Mr. Bocanegra is . Mr. Bocanegra no longer smokes. He drinks occasionally. Review Of Symptoms: <See Above> Vital Signs: Performed on Sep 26, 2020 14:06 Height - 68.00 in Temperature - 98.0 F (LOW) Pulse - 75 /min Respiration - 18 /min BP - 119/70 mm(hg) O2 Sat - 95 % (LOW) Performed on Sep 26, 2020 11:31 Height - 68.00 in Weight - 173.8 lbs (LOW) BSA - 1.93 sq.m BMI - 26.43 Temperature - 97.8 F (LOW) Pulse - 112 /min (HIGH) Respiration - 20 /min BP - 130/78 mm(hg) O2 Sat - 97 % Pain - 3 Fatigue - 7,2 - Ambulatory/capable of all self-care, unable to perform any work activities. Up and about more than 50% of waking hours. (ECOG) Physical Examination: Constitutional Alert, oriented, no acute distress. Skin pink, warm and dry. Head Normocephalic; atraumatic. Eyes Conjunctivae and sclerae are clear and without icterus. Pupils are reactive and equal. Neck Supple without masses or thyromegaly. No jugular venous distension. Hematologic/Lymphatic No petechiae or purpura. No tender or palpable lymph nodes in the cervical or supraclavicular areas. Respiratory Lungs are clear to auscultation without rhonchi or wheezing. Cardiovascular Regular rate and rhythm of heart without murmurs,clicks, gallops or rubs. Abdomen Non-tender, non-distended, no masses. Good bowel sounds noted in all quads. No guarding or rebound tenderness. No pulsatile masses. Back/Spine Non-tender to palpation. Extremities No visible deformities, no cyanosis, clubbing or edema. Musculoskeletal No tenderness or swelling, normal range of motion without obvious weakness. Integumentary No rashes or lesions. Neurologic No sensory or motor deficits, normal cerebellar function, normal gait. Psychiatric Alert and oriented times three. Coherent speech. Verbalizes understanding of our discussions today. Laboratory:Test performed on Sep 19, 2020 14:30 WBC 9.5 10 3/uL RBC 4.38 10 6/uL HGB 13.2 g/dL HCT 40.9 % MCV 93.4 fL MCH 30.1 pg MCHC 32.3 g/dL RDW 15.6 % Platelet Count 122 10 3/cmm MPV 11.7 fL Neutrophils 6.37 10 3/uL Lymphocytes 1.4 10 3/uL Monocytes 0.9 10 3/uL Eosinophils 0.8 10 3/uL Basophils 0.1 10 3/uL Neutrophil % 66.8 % Lymphocyte % 14.6 % Monocyte % 9.3 % Eosinophil % 7.9 % Basophils % 0.9 % NRBC % 0 % Impression: Metastatic carcinoma, As per cancer type ID cholangiocarcinoma with 90% probability, per sonogram guided liver biopsy done on August 06, 2020, immunohistochemistry stain positive for CK7 but negative for CEA, CDX2, CK 5/6, CK20, Napsin, TTF-1, PIN 4, Guardant 360 showed tumor mutational burden less than 10 and MSI -high not detected, PD-L1 less than 1% but alteration in LEISA splice site SNV CT PET scan done on August 03 2020 showed questionable sigmoid colon mass, extensive metastatic disease in the liver dominant lesion in the left hepatic lobe demonstrating significant central necrosis measuring 9.6 x 5.4 cm SUV of 10. FDG positive soft tissue omental implants and omental stranding is consistent with carcinomatosis. Bilateral FDG positive retroperitoneal nodes down to the level of aortic bifurcation and extensive mesenteric lymphadenopathy. Intensive sigmoid colonic uptake suggestive of malignancy also noted FDG positive mediastinal nodes consistent with malignancy and bilateral pulmonary nodules, are FDG positive Diabetes mellitus, hypertension, aortic stenosis Plan/Problems Addressed at this Visit: 1. cholangiocarcinoma with 90% probability and guardant 360 showed tumor mutational burden less than 10, MSI H not detected, PD-L1 less than 1% thus not a candidate for upfront chemotherapy and in that case we will consider palliative chemotherapy with weekly gemcitabine/Abraxane if not tolerated, will consider oral Xeloda. His current treatment plan is gemcitabine/Abraxane weekly x2 then week off and then repeat the cycle. A. Proceed with day 8 cycle 1 Abraxane gemcitabine. B. He will have dose reduction of both chemotherapy agents today. He will continue current antiemetics. C. Labs from September 25, 2020 were reviewed in detail discussed with Mr. Sorensen and a copy was given to him. Hemoglobin 6.8, hemoglobin 12.1, platelets 112,000, ANC is 4530. Potassium 4.5 sodium 132 random glucose 163 creatinine 0.7 his ALT is 38 his AST is 61 and his alk phos is 215. D. We will offer him supportive care in the interim as needed. He can have daily hydration or multiple times a week what ever his preferences at this time. We will add antiemetics as appropriate. E. Have asked for weekly labs to include CBC CMP. F. We will plan to have him return in 2 weeks with follow-up to include CBC CMP. He will be due for cycle 2-day 1 chemotherapy at that time. G. Mr. Pennington instructed to contact us in interim should questions or problems arise. Signed By: Flavio Mantilla-, AOP Collette Louie MD <<Signature on File>>
[2020-10-08 08:39] LABS: Basophils # 0.1 10^3/uL (0.0-0.1); Basophils % 1.1 %; Eosinophils # 0.2 10^3/uL (0.0-0.8); Eosinophils % 2.3 %; Hematocrit 38.5 % (42.0-52.0); Hemoglobin 12.3 g/dL (11.7-16.6); Lymphocytes # 1.2 10^3/uL (0.8-4.8); Lymphocytes % 15.5 %; Mean Corpuscular HGB Conc 31.9 g/dL (30.0-36.0); Mean Corpuscular Hemoglobin 30.1 pg (28.0-34.0); Mean Corpuscular Volume 94.1 fL (80-94); Mean Platelet Volume 10.6 fL (7.4-10.4); Monocytes # 0.8 10^3/uL (0.2-0.9); Monocytes % 10.6 %; Neutrophils # 5.16 10^3/uL (1.8-7.7); Neutrophils % 69.2 %; Nucleated Red Blood Cells % 0 %; Platelet Count 176 10^3/cmm (130-400); Red Blood Count 4.09 10^6/uL (4.1-5.3); Red Cell Distribution Width 16.7 % (12.1-15.1); White Blood Count 7.5 10^3/uL (4.0-10.0)
[2020-10-08 09:11] LABS: Alanine Aminotransferase 91 U/L (0-41); Albumin Level 3.5 g/dL (3.5-5.2); Alkaline Phosphatase 356 IU/L (40-130); Anion Gap 13.1 (5-19); Aspartate Amino Transferase 102 U/L (0-40); Blood Urea Nitrogen 8 mg/dL (8-23); Calcium 10.8 mg/dL (8.5-10.5); Carbon Dioxide 25 mmol/L (22-29); Chloride 100 mmol/L (98-107); Globulin 3.1 g/dL (1.3-4.6); Glucose 192 mg/dL (65-115); Osmolality Calculated 282 mOsm/kg (285-295); Potassium 4.1 mmol/L (3.5-5.1); Sodium 134 mmol/L (136-145); Total Bilirubin 0.3 mg/dL (0.15-1.2); Total Protein 6.6 g/dL (6.6-8.7)
[2020-10-08] MEDS: sodium chloride 0.9% 250 ML IV (11:11)
[2020-10-08] MEDS: famotidine 20 mg/2 mL INJ IVP (11:11)
[2020-10-08] MEDS: palonosetron 0.25 mg/5 mL SDV IVP (11:13)
[2020-10-11] MEDS: sodium chloride 0.9% 1,000 ML 999 ML IV (08:30)
[2020-10-14 13:40] LABS: Basophils # 0.1 10^3/uL (0.0-0.1); Basophils % 1.1 %; Eosinophils # 0.1 10^3/uL (0.0-0.8); Eosinophils % 1.9 %; Hematocrit 34.1 % (42.0-52.0); Hemoglobin 11.1 g/dL (11.7-16.6); Lymphocytes # 1.2 10^3/uL (0.8-4.8); Lymphocytes % 21.8 %; Mean Corpuscular HGB Conc 32.6 g/dL (30.0-36.0); Mean Corpuscular Hemoglobin 30.5 pg (28.0-34.0); Mean Corpuscular Volume 93.7 fL (80-94); Mean Platelet Volume 10.5 fL (7.4-10.4); Monocytes # 0.9 10^3/uL (0.2-0.9); Monocytes % 16.8 %; Neutrophils # 3.06 10^3/uL (1.8-7.7); Neutrophils % 56.9 %; Nucleated Red Blood Cells % 0 %; Platelet Count 206 10^3/cmm (130-400); Red Blood Count 3.64 10^6/uL (4.1-5.3); Red Cell Distribution Width 16.3 % (12.1-15.1); White Blood Count 5.4 10^3/uL (4.0-10.0)
[2020-10-14 14:13] LABS: Alanine Aminotransferase 62 U/L (0-41); Albumin Level 3.2 g/dL (3.5-5.2); Alkaline Phosphatase 333 IU/L (40-130); Anion Gap 13.4 (5-19); Aspartate Amino Transferase 81 U/L (0-40); Blood Urea Nitrogen 11 mg/dL (8-23); Calcium 9.9 mg/dL (8.5-10.5); Carbon Dioxide 26 mmol/L (22-29); Chloride 101 mmol/L (98-107); Globulin 3.1 g/dL (1.3-4.6); Glucose 140 mg/dL (65-115); Osmolality Calculated 284 mOsm/kg (285-295); Potassium 4.4 mmol/L (3.5-5.1); Sodium 136 mmol/L (136-145); Total Bilirubin 0.3 mg/dL (0.15-1.2); Total Protein 6.3 g/dL (6.6-8.7)
[2020-10-15] MEDS: sodium chloride 0.9% 250 ML 75 ML IV (13:15)
[2020-10-15] MEDS: famotidine 20 mg/2 mL INJ IVP (13:15)
[2020-10-15] MEDS: palonosetron 0.25 mg/5 mL SDV IVP (13:20)
--- NOTE | 2020-10-17 15:44 | ONC FU_ITS ---
Dr. Louie follow up note Patient: Jose Bocanegra Unit #: [id number]: 1945 Dicatated By: Collette Louie M.D.Date of Visit:Oct 08, 2020 Onc Med Follow-up/Prog Note History of Present Illness: Mr. Jose Bocanegra, is a 74-year-old gentleman with history of poor taste abdominal discomfort and about 40 pound weight loss since September 2019, as per patient he used to weigh 233 pounds now down to 185 pounds also complaining of excessive, off and on dysphagia. Denies any abdominal pain, denies any melena or hematochezia, denies any hemoptysis or hematemesis as per patient, he had a colonoscopy done in 2019 But it was suboptimal study because of sigmoid stricture and colonoscopy was not advanced further subsequently underwent barium enema which showed narrowing of sigmoid colon secondary to chronic diverticulosis, patient was evaluated by PMD for above mentioned symptoms and underwent CT scan of abdomen pelvis on July 24, 2020 which showed irregular mass centered in left lobe of liver measuring 4.7 x 8.7 x 5.6 cm. There are additional scattered nodules suspicious for metastatic disease. Bilateral lower lobe pulmonary nodules and lymph nodes along the right pulmonary ligament. There is a moderate nodularity and thickening of the omentum consistent with peritoneal carcinomatosis. Numerous small scattered lymph nodes within the mesentery and retroperitoneum. Multifocal area of abnormality within the colon, stricture near the hepatic flexure. There is a significant wall thickening and diverticular disease involving the descending and sigmoid colon. Additional circumstantial thickening involving antrum of stomach could be neoplastic. And lab work-up done on July 25, 2020 shows white blood count 8 hemoglobin 14 hematocrit 42.5 platelets 125,000 with a normal differential CEA 1.8, on August 06, 2020 he underwent sonogram guided liver biopsy which confirmed adenocarcinoma immunohistochemistry showed CK7 positive and p63 and weakly positive otherwise negative for CEA, CDX2, CK 5/6, CK20, Napsin, TTF-1, PIN 4,, as per pathology based on metastatic carcinoma being CK positive, CK20 negative and TTF-1 negative possibility of lung primary or colon primary is less likely but gastric adenocarcinoma, pancreatic subtype or an extrahepatic carcinoma bile duct is high on the differential. Patient underwent CT PET scan on August 03, 2020 which showed questionable sigmoid colon mass, extensive hepatic metastatic disease, malignant adenopathy in mediastinum, mesenteric, retroperitoneal area. Malignant omental implants and carcinomatosis. Malignant bilateral pulmonary nodules. 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 Patient has Port-A-Cath placement., Started on palliative chemotherapy with gemcitabine/Abraxane on September 19, 2020 Came for follow-up, denies any specific complaints, no fever chills, no nausea or vomiting, no diarrhea or constipation, tolerating orally better, tolerating palliative chemotherapy with gemcitabine/Abraxane better Medications: Allopurinol 1 Tablet (of 100 mg) Oral b.i.d., Isosorbide Mononitrate ER 1 Tablet (of 30 mg) Tablet SR 24 HR Oral daily, Metoprolol Succinate ER 0.5 Tablet (of 25 mg) Tablet SR 24 HR Oral daily, Niacin 1 Tablet (of 500 mg) Oral daily, Simvastatin 1 Tablet (of 40 mg) Oral daily Allergies: No Known Allergies. Review of Systems: Review of Systems is not available for this patient. Vital Signs: Performed on Oct 08, 2020 09:37 Height - 68.00 in Weight - 171.0 lbs (LOW) BSA - 1.91 sq.m BMI - 26.00 Temperature - 97.9 F (LOW) Pulse - 97 /min Respiration - 18 /min BP - 144/79 mm(hg) (HIGH) O2 Sat - 98 % Pain - 0 Performance Status: 1 - No physically strenuous activity, but ambulatory and able to carry out light or sedentary work (e.g. office work, light house work). (ECOG) Physical Examination: ENMT - on September 19, 2020 no mouth sores, no thrush, no jaundice, Respiratory - Lungs are clear to auscultation, Cardiovascular - Regular rate and rhythm of heart, Abdomen - Soft, bowel sounds present, distended, Extremities - No visible edema. Lab/Imaging: Test performed on Oct 14, 2020 13:20 Sodium 136 mmol/L Potassium 4.4 mmol/L Chloride 101 mmol/L CO2 26 mmol/L Anion Gap 13.4 BUN 11 mg/dL Creatinine 0.6 mg/dL Cr Clearance (Est) 125.9900 mL/min Glucose 140 mg/dL Osmolality - Calculated 284 mOsm/kg Calcium 9.9 mg/dL Protein, Total 6.3 g/dL Albumin 3.2 g/dL Globulin 3.1 g/dL Bilirubin, Total 0.3 mg/dL ALT (SGPT) 62 U/L AST (SGOT) 81 U/L Alkaline Phosphatase 333 IU/L WBC 5.4 10 3/uL RBC 3.64 10 6/uL HGB 11.1 g/dL HCT 34.1 % MCV 93.7 fL MCH 30.5 pg MCHC 32.6 g/dL RDW 16.3 % Platelet Count 206 10 3/cmm MPV 10.5 fL Neutrophils 3.06 10 3/uL Lymphocytes 1.2 10 3/uL Monocytes 0.9 10 3/uL Eosinophils 0.1 10 3/uL Basophils 0.1 10 3/uL Neutrophil % 56.9 % Lymphocyte % 21.8 % Monocyte % 16.8 % Eosinophil % 1.9 % Basophils % 1.1 % NRBC % 0 % Impression: Metastatic carcinoma, As per cancer type ID cholangiocarcinoma with 90% probability, per sonogram guided liver biopsy done on August 06, 2020, immunohistochemistry stain positive for CK7 but negative for CEA, CDX2, CK 5/6, CK20, Napsin, TTF-1, PIN 4, Guardant 360 showed tumor mutational burden less than 10 and MSI -high not detected, PD-L1 less than 1% but alteration in LEISA splice site SNV CT PET scan done on August 03 2020 showed questionable sigmoid colon mass, extensive metastatic disease in the liver dominant lesion in the left hepatic lobe demonstrating significant central necrosis measuring 9.6 x 5.4 cm SUV of 10. FDG positive soft tissue omental implants and omental stranding is consistent with carcinomatosis. Bilateral FDG positive retroperitoneal nodes down to the level of aortic bifurcation and extensive mesenteric lymphadenopathy. Intensive sigmoid colonic uptake suggestive of malignancy also noted FDG positive mediastinal nodes consistent with malignancy and bilateral pulmonary nodules, are FDG positive Diabetes mellitus, hypertension, aortic stenosis Started on systemic chemotherapy with Abraxane/gemcitabine Plan: Discussed with patient regarding his labs white blood count 7.5 hemoglobin 12.3 hematocrit 38.5 platelets 176,000 CMP within normal limit except glucose 192 and ALT 91 compared to 81 previously and 38 on September 25, 2020 AST 102 compared to 76 previously alk phos 356 compared to 245 previously and calcium 10.8 compared to 11 previously Clinically, patient is doing reasonably well, tolerating palliative therapy with weekly Abraxane/gemcitabine well but his follow-up labs shows progressive transaminitis and also alk phos is increasing but bilirubin is normal range, at this point will consider right upper quadrant sonogram in the meantime we will proceed with this second cycle day 1 Abraxane/gemcitabine but will reduce dose by 5% to minimize chemo toxicity. And will monitor his liver function tests. Patient return to clinic in 1 week with CBC CMP and right upper quadrant sonogram Signed By: Collette Louie M.D. <<Signature on File>>
--- NOTE | 2020-10-23 03:08 | ONC FU_ITS ---
Doretha Webber Patient Note Patient: Jose Bocanegra Unit #: [id number]: 1945 Dictated By: Flavio MantillaDate of Visit: Oct 14, 2020 Onc MED Follow-Up/Prog Note Chief Complaint: History of Present Illness: Mr. Bocanegra is a 74-year-old gentleman with history of poor taste abdominal discomfort and about 40 pound weight loss since September 2019, as per patient he used to weigh 233 pounds now down to 185 pounds also complaining of excessive, off and on dysphagia. Denies any abdominal pain, denies any melena or hematochezia, denies any hemoptysis or hematemesis as per patient, he had a colonoscopy done in 2019 But it was suboptimal study because of sigmoid stricture and colonoscopy was not advanced further subsequently underwent barium enema which showed narrowing of sigmoid colon secondary to chronic diverticulosis, Mr Bocanegra was evaluated by PMD for above mentioned symptoms and underwent CT scan of abdomen pelvis on July 24, 2020 which showed irregular mass centered in left lobe of liver measuring 4.7 x 8.7 x 5.6 cm. There are additional scattered nodules suspicious for metastatic disease. Bilateral lower lobe pulmonary nodules and lymph nodes along the right pulmonary ligament. There is a moderate nodularity and thickening of the omentum consistent with peritoneal carcinomatosis. Numerous small scattered lymph nodes within the mesentery and retroperitoneum. Multifocal area of abnormality within the colon, stricture near the hepatic flexure. There is a significant wall thickening and diverticular disease involving the descending and sigmoid colon. Additional circumstantial thickening involving antrum of stomach could be neoplastic. And lab work-up done on July 25, 2020 shows white blood count 8 hemoglobin 14 hematocrit 42.5 platelets 125,000 with a normal differential CEA 1.8, on August 06, 2020 he underwent sonogram guided liver biopsy which confirmed adenocarcinoma immunohistochemistry showed CK7 positive and p63 and weakly positive otherwise negative for CEA, CDX2, CK 5/6, CK20, Napsin, TTF-1, PIN 4,, as per pathology based on metastatic carcinoma being CK positive, CK20 negative and TTF-1 negative possibility of lung primary or colon primary is less likely but gastric adenocarcinoma, pancreatic subtype or an extrahepatic carcinoma bile duct is high on the differential. Patient underwent CT PET scan on August 03, 2020 which showed questionable sigmoid colon mass, extensive hepatic metastatic disease, malignant adenopathy in mediastinum, mesenteric, retroperitoneal area. Malignant omental implants and carcinomatosis. Malignant bilateral pulmonary nodules. 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 Patient has Port-A-Cath placement., Mr Bocanegra began palliative chemotherapy with gemcitabine/Abraxane on September 19, 2020. He has tolerated it well thus far. He received cycle 2-day 1 on October 08, 2020. He is here today for follow-up. He denies any new concerns. He denies any fever or chills. He denies any mouth sores, sore throat or difficulty swallowing. He states his appetite is fair. His energy is marginal. He has occasional shortness of breath but no productive cough. He denies any hemoptysis. He denies any nausea or vomiting. 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 He states his bowels and bladder have been normal for him. His ECOG is 1. Past Medical History: Aortic valve stenosis Cataract Gout Hyperlipidemia Hypertension Type II diabetes Past Surgical History: Cataract excision Colonoscopy Covid vaccine #2 in 2020 Covid vaccine #1 in 2020 Allergies: No Known Allergies. Medications: Allopurinol 1 Tablet (of 100 mg) Oral b.i.d. Isosorbide Mononitrate ER 1 Tablet (of 30 mg) Tablet SR 24 HR Oral daily Metoprolol Succinate ER 0.5 Tablet (of 25 mg) Tablet SR 24 HR Oral daily Niacin 1 Tablet (of 500 mg) Oral daily Simvastatin 1 Tablet (of 40 mg) Oral daily Family History: Social History: Mr. Bocanegra is . Mr. Bocanegra no longer smokes. He drinks occasionally. Review Of Symptoms: <See Above> Vital Signs: Performed on Oct 14, 2020 14:48 Height - 68.00 in Weight - 168.4 lbs (LOW) BSA - 1.90 sq.m BMI - 25.61 Temperature - 96.2 F (LOW) Pulse - 88 /min Respiration - 18 /min BP - 142/90 mm(hg) (HIGH) O2 Sat - 95 % (LOW) Pain - 0,1 - No physically strenuous activity, but ambulatory and able to carry out light or sedentary work (e.g. office work, light house work). (ECOG) Physical Examination: Constitutional Alert, oriented, no acute distress. Skin pink, warm and dry. Head Normocephalic; atraumatic. Eyes Conjunctivae and sclerae are clear and without icterus. Pupils are reactive and equal. Neck Supple without masses or thyromegaly. No jugular venous distension. Hematologic/Lymphatic No petechiae or purpura. No tender or palpable lymph nodes in the cervical or supraclavicular areas. Respiratory Lungs are clear to auscultation without rhonchi or wheezing. Cardiovascular Regular rate and rhythm of heart without murmurs,clicks, gallops or rubs. Abdomen Non-tender, non-distended, no masses. Good bowel sounds noted in all quads. No guarding or rebound tenderness. No pulsatile masses. Back/Spine Non-tender to palpation. Extremities No visible deformities, no cyanosis, clubbing or edema. Musculoskeletal No tenderness or swelling, normal range of motion without obvious weakness. Integumentary No rashes or lesions. Neurologic No sensory or motor deficits, normal cerebellar function, normal gait. Psychiatric Alert and oriented times three. Coherent speech. Verbalizes understanding of our discussions today. Laboratory:Test performed on Oct 14, 2020 13:20 Sodium 136 mmol/L Potassium 4.4 mmol/L Chloride 101 mmol/L CO2 26 mmol/L Anion Gap 13.4 BUN 11 mg/dL Creatinine 0.6 mg/dL Cr Clearance (Est) 125.9900 mL/min Glucose 140 mg/dL Osmolality - Calculated 284 mOsm/kg Calcium 9.9 mg/dL Protein, Total 6.3 g/dL Albumin 3.2 g/dL Globulin 3.1 g/dL Bilirubin, Total 0.3 mg/dL ALT (SGPT) 62 U/L AST (SGOT) 81 U/L Alkaline Phosphatase 333 IU/L WBC 5.4 10 3/uL RBC 3.64 10 6/uL HGB 11.1 g/dL HCT 34.1 % MCV 93.7 fL MCH 30.5 pg MCHC 32.6 g/dL RDW 16.3 % Platelet Count 206 10 3/cmm MPV 10.5 fL Neutrophils 3.06 10 3/uL Lymphocytes 1.2 10 3/uL Monocytes 0.9 10 3/uL Eosinophils 0.1 10 3/uL Basophils 0.1 10 3/uL Neutrophil % 56.9 % Lymphocyte % 21.8 % Monocyte % 16.8 % Eosinophil % 1.9 % Basophils % 1.1 % NRBC % 0 % Impression: Metastatic carcinoma, As per cancer type ID cholangiocarcinoma with 90% probability, per sonogram guided liver biopsy done on August 06, 2020, immunohistochemistry stain positive for CK7 but negative for CEA, CDX2, CK 5/6, CK20, Napsin, TTF-1, PIN 4, Guardant 360 showed tumor mutational burden less than 10 and MSI -high not detected, PD-L1 less than 1% but alteration in LEISA splice site SNV CT PET scan done on August 03 2020 showed questionable sigmoid colon mass, extensive metastatic disease in the liver dominant lesion in the left hepatic lobe demonstrating significant central necrosis measuring 9.6 x 5.4 cm SUV of 10. FDG positive soft tissue omental implants and omental stranding is consistent with carcinomatosis. Bilateral FDG positive retroperitoneal nodes down to the level of aortic bifurcation and extensive mesenteric lymphadenopathy. Intensive sigmoid colonic uptake suggestive of malignancy also noted FDG positive mediastinal nodes consistent with malignancy and bilateral pulmonary nodules, are FDG positive Diabetes mellitus, hypertension, aortic stenosis Plan/Problems Addressed at this Visit: 1. cholangiocarcinoma with 90% probability and guardant 360 showed tumor mutational burden less than 10, MSI H not detected, PD-L1 less than 1% thus not a candidate for upfront chemotherapy and in that case we will consider palliative chemotherapy with weekly gemcitabine/Abraxane if not tolerated, will consider oral Xeloda. His current treatment plan is gemcitabine/Abraxane weekly x2 then week off and then repeat the cycle. A. Proceed with day 8 cycle 2 Abraxane gemcitabine. He did have dose reduction with cycle 2-day 1 to minimize chemo toxicity. His LFTs had elevated. B. He will continue dose reduction of both chemotherapy agents today. He will continue current antiemetics. C. Labs from Today were reviewed in detail and discussed with Mr. Sorensen and a copy was given to him. WBC 5.4, hemoglobin 11.1, platelets 206,000, ANC is 3060. Potassium 4.4 creatinine 0.6 albumin 3.2 ALT is 62 which is improved from 91 last week his AST is 81 which is improved from 102 last week. His alk phos is also declining at 333. His weight today is 168.4 pounds. D. He may continue supportive care as needed. E. Have asked for weekly labs to include CBC CMP. F. We will plan to have him return in 2 weeks with follow-up to include CBC CMP. He will be due for cycle 3-day 1 chemotherapy at that time. G. Mr. Bocanegra was instructed to contact us in interim should questions or problems arise. Signed By: Flavio Mantilla-, CNP Collette Louie MD <<Signature on File>>
== END 2020-10-16 23:59 | disposition home or self-care (01) ==
LOC: ONCMED 09:55
PROVIDERS: Nurse Practitioner; PCP Internal Medicine; Visit Provider Internal Medicine Hematology & Oncology
DX: Z51.11 Encounter for antineoplastic chemotherapy (principal); C22.1 Intrahepatic bile duct carcinoma; C77.8 Secondary and unspecified malignant neoplasm of lymph nodes of multiple regions; C78.6 Secondary malignant neoplasm of retroperitoneum and peritoneum; C78.02 Secondary malignant neoplasm of left lung; C78.01 Secondary malignant neoplasm of right lung; E11.9 Type 2 diabetes mellitus without complications; I10 Essential (primary) hypertension; I35.0 Nonrheumatic aortic (valve) stenosis; Z79.899 Other long term (current) drug therapy
CPT/HCPCS: 36591; 80053; 85025; 96360; 96367; 96375; 96413; 96417; 99214; 99215; J1100; J2469; J3490; J7030; J7050; J9201; J9264

== ENCOUNTER 2020-10-29 08:36 | Outpatient (CLI) | payer MEDICARE, SELFPAY ==
--- NOTE | 2020-10-29 08:00 | US_ITS ---
WS: [id number] ULTRASOUND ABDOMEN CLINICAL INFORMATION: R UPPER ABDOMEN PAIN W/ELEVATED LFT'S COMPARISON: CT September 22, 2020 FINDINGS: Liver Size: Enlarged Craniocaudal length: 15.2 cm. Echogenicity: Coarse Surface nodularity: None. Mass (size and location): Left hepatic mass previously described better seen on the prior CT September 22, 2020 Bile ducts Intrahepatic ducts: Normal. Common bile duct diameter: 0.3 cm. Gallbladder Normal. Gallstones: None. Gallbladder sludge: None. Gallbladder wall thickening: None. Pericholecystic fluid: None. Sonographic Caceres sign: Absent. Pancreas Normal as visualized. Normal spleen measuring 10.7 cm Right kidney: Normal. Hydronephrosis: None. Size: 11.5 cm x 5.7 cm x 5.0 cm Left kidney: Left mid renal simple cyst measuring 4.9 x 4.9 x 4.6 CM. Hydronephrosis: None. Size: 11.5 cm x 5.1 cm x 4.6 cm. Abdominal aorta and IVC Visualized portions are normal. Ascites: Present US/US abdomen complete* [id number] IMPRESSION: 1. Coarsened liver echotexture. Previously Described infiltrating lesion in th e left hepatic lobe better visualized on prior CT. No intrahepatic biliary duct al dilatation. 2. Mild perihepatic ascites. 3. Normal gallbladder with phrygian cap. 4. No hydronephrosis in right kidney. 5. Left mid renal simple cyst measuring 4.9 x 4.9 x 4.6 CM.
== END 2020-10-29 08:37 | disposition home or self-care (01) ==
PROVIDERS: PCP Internal Medicine; Visit Provider Internal Medicine Hematology & Oncology
DX: R10.11 Right upper quadrant pain (principal); R94.5 Abnormal results of liver function studies; R18.8 Other ascites; N28.1 Cyst of kidney, acquired
CPT/HCPCS: 76700

== ENCOUNTER 2020-11-07 05:44 | Outpatient (RCR) | payer MEDICARE, SELFPAY ==
[2020-10-18] MEDS: sodium chloride 0.9% 1,000 ML 999 ML IV (09:40)
[2020-10-29 09:35] LABS: Basophils # 0.1 10^3/uL (0.0-0.1); Eosinophils # 0.4 10^3/uL (0.0-0.8); Eosinophils % 3.3 %; Hematocrit 38.3 % (42.0-52.0); Hemoglobin 12.1 g/dL (11.7-16.6); Lymphocytes # 1.3 10^3/uL (0.8-4.8); Lymphocytes % 11.2 %; Mean Corpuscular HGB Conc 31.6 g/dL (30.0-36.0); Mean Corpuscular Hemoglobin 30.5 pg (28.0-34.0); Mean Corpuscular Volume 96.5 fL (80-94); Mean Platelet Volume 10.2 fL (7.4-10.4); Monocytes # 1.2 10^3/uL (0.2-0.9); Monocytes % 10.6 %; Neutrophils # 8.43 10^3/uL (1.8-7.7); Neutrophils % 72.1 %; Nucleated Red Blood Cells % 0 %; Platelet Count 285 10^3/cmm (130-400); Red Blood Count 3.97 10^6/uL (4.1-5.3); Red Cell Distribution Width 18.2 % (12.1-15.1); White Blood Count 11.7 10^3/uL (4.0-10.0)
[2020-10-29 09:52] LABS: Alanine Aminotransferase 39 U/L (0-41); Albumin Level 3.3 g/dL (3.5-5.2); Alkaline Phosphatase 393 IU/L (40-130); Anion Gap 14.2 (5-19); Aspartate Amino Transferase 75 U/L (0-40); Blood Urea Nitrogen 10 mg/dL (8-23); Calcium 10.2 mg/dL (8.5-10.5); Carbon Dioxide 27 mmol/L (22-29); Chloride 100 mmol/L (98-107); Globulin 3.5 g/dL (1.3-4.6); Glucose 160 mg/dL (65-115); Osmolality Calculated 286 mOsm/kg (285-295); Potassium 4.2 mmol/L (3.5-5.1); Sodium 137 mmol/L (136-145); Total Bilirubin 0.4 mg/dL (0.15-1.2); Total Protein 6.8 g/dL (6.6-8.7)
[2020-10-31] MEDS: sodium chloride 0.9% 250 ML 75 ML IV (09:39)
[2020-10-31] MEDS: famotidine 20 mg/2 mL INJ IVP (09:39)
[2020-10-31] MEDS: palonosetron 0.25 mg/5 mL SDV IV (09:47)
--- NOTE | 2020-10-31 17:56 | ONC FU_ITS ---
Dr. Louie follow up note Patient: Jose Bocanegra Unit #: [id number]: 1945 Dicatated By: Collette Louie M.D.Date of Visit:Oct 31, 2020 Onc Med Follow-up/Prog Note History of Present Illness: Mr. Bocanegra is a 74-year-old gentleman with history of poor taste abdominal discomfort and about 40 pound weight loss since September 2019, as per patient he used to weigh 233 pounds now down to 185 pounds also complaining of excessive, off and on dysphagia. Denies any abdominal pain, denies any melena or hematochezia, denies any hemoptysis or hematemesis as per patient, he had a colonoscopy done in 2019 But it was suboptimal study because of sigmoid stricture and colonoscopy was not advanced further subsequently underwent barium enema which showed narrowing of sigmoid colon secondary to chronic diverticulosis, Mr Bocanegra was evaluated by PMD for above mentioned symptoms and underwent CT scan of abdomen pelvis on July 24, 2020 which showed irregular mass centered in left lobe of liver measuring 4.7 x 8.7 x 5.6 cm. There are additional scattered nodules suspicious for metastatic disease. Bilateral lower lobe pulmonary nodules and lymph nodes along the right pulmonary ligament. There is a moderate nodularity and thickening of the omentum consistent with peritoneal carcinomatosis. Numerous small scattered lymph nodes within the mesentery and retroperitoneum. Multifocal area of abnormality within the colon, stricture near the hepatic flexure. There is a significant wall thickening and diverticular disease involving the descending and sigmoid colon. Additional circumstantial thickening involving antrum of stomach could be neoplastic. And lab work-up done on July 25, 2020 shows white blood count 8 hemoglobin 14 hematocrit 42.5 platelets 125,000 with a normal differential CEA 1.8, on August 06, 2020 he underwent sonogram guided liver biopsy which confirmed adenocarcinoma immunohistochemistry showed CK7 positive and p63 and weakly positive otherwise negative for CEA, CDX2, CK 5/6, CK20, Napsin, TTF-1, PIN 4,, as per pathology based on metastatic carcinoma being CK positive, CK20 negative and TTF-1 negative possibility of lung primary or colon primary is less likely but gastric adenocarcinoma, pancreatic subtype or an extrahepatic carcinoma bile duct is high on the differential. Patient underwent CT PET scan on August 03, 2020 which showed questionable sigmoid colon mass, extensive hepatic metastatic disease, malignant adenopathy in mediastinum, mesenteric, retroperitoneal area. Malignant omental implants and carcinomatosis. Malignant bilateral pulmonary nodules. 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 Patient has Port-A-Cath placement., Mr Bocanegra began palliative chemotherapy with gemcitabine/Abraxane on September 19, 2020. He has tolerated it well thus far. Came for follow-up, denies any specific complaint except mild abdominal pain which is controlled by current pain medication otherwise no fever chills, no nausea or vomiting, no diarrhea or constipation, no jaundice, no increasing abdominal girth, no diarrhea but constipation Otherwise tolerating systemic therapy With Abraxane/gemcitabine well . Medications: Allopurinol 1 Tablet (of 100 mg) Oral b.i.d., Isosorbide Mononitrate ER 1 Tablet (of 30 mg) Tablet SR 24 HR Oral daily, Metoprolol Succinate ER 0.5 Tablet (of 25 mg) Tablet SR 24 HR Oral daily, Niacin 1 Tablet (of 500 mg) Oral daily, Simvastatin 1 Tablet (of 40 mg) Oral daily Allergies: No Known Allergies. Review of Systems: Review of Systems is not available for this patient. Vital Signs: Performed on Oct 31, 2020 08:43 Height - 68.00 in Weight - 166.2 lbs (LOW) BSA - 1.89 sq.m BMI - 25.27 Temperature - 97.2 F (LOW) Pulse - 110 /min (HIGH) Respiration - 18 /min BP - 112/72 mm(hg) O2 Sat - 97 % Pain - 3 Fatigue - 5 Performance Status: 1 - No physically strenuous activity, but ambulatory and able to carry out light or sedentary work (e.g. office work, light house work). (ECOG) Physical Examination: ENMT - No mouth sores, no thrush, no jaundice, Respiratory - Lungs are clear to auscultation, Cardiovascular - Regular rate and rhythm of heart, Abdomen - Soft, bowel sounds present, mild fluid shift, Extremities - Trace edema bilaterally. Lab/Imaging: Test performed on Oct 14, 2020 13:20 Sodium 136 mmol/L Potassium 4.4 mmol/L Chloride 101 mmol/L CO2 26 mmol/L Anion Gap 13.4 BUN 11 mg/dL Creatinine 0.6 mg/dL Cr Clearance (Est) 125.9900 mL/min Glucose 140 mg/dL Osmolality - Calculated 284 mOsm/kg Calcium 9.9 mg/dL Protein, Total 6.3 g/dL Albumin 3.2 g/dL Globulin 3.1 g/dL Bilirubin, Total 0.3 mg/dL ALT (SGPT) 62 U/L AST (SGOT) 81 U/L Alkaline Phosphatase 333 IU/L WBC 5.4 10 3/uL RBC 3.64 10 6/uL HGB 11.1 g/dL HCT 34.1 % MCV 93.7 fL MCH 30.5 pg MCHC 32.6 g/dL RDW 16.3 % Platelet Count 206 10 3/cmm MPV 10.5 fL Neutrophils 3.06 10 3/uL Lymphocytes 1.2 10 3/uL Monocytes 0.9 10 3/uL Eosinophils 0.1 10 3/uL Basophils 0.1 10 3/uL Neutrophil % 56.9 % Lymphocyte % 21.8 % Monocyte % 16.8 % Eosinophil % 1.9 % Basophils % 1.1 % NRBC % 0 % Impression: Metastatic carcinoma, As per cancer type ID cholangiocarcinoma with 90% probability, per sonogram guided liver biopsy done on August 06, 2020, immunohistochemistry stain positive for CK7 but negative for CEA, CDX2, CK 5/6, CK20, Napsin, TTF-1, PIN 4, Guardant 360 showed tumor mutational burden less than 10 and MSI -high not detected, PD-L1 less than 1% but alteration in LEISA splice site SNV CT PET scan done on August 03 2020 showed questionable sigmoid colon mass, extensive metastatic disease in the liver dominant lesion in the left hepatic lobe demonstrating significant central necrosis measuring 9.6 x 5.4 cm SUV of 10. FDG positive soft tissue omental implants and omental stranding is consistent with carcinomatosis. Bilateral FDG positive retroperitoneal nodes down to the level of aortic bifurcation and extensive mesenteric lymphadenopathy. Intensive sigmoid colonic uptake suggestive of malignancy also noted FDG positive mediastinal nodes consistent with malignancy and bilateral pulmonary nodules, are FDG positive Diabetes mellitus, hypertension, aortic stenosis Plan: Discussed with patient regarding labs white blood count 11.7 hemoglobin 12.1 hematocrit 38.3 platelets 285,000 CMP within normal limit except glucose 160 and ALT 39 compared to 62 previously AST 75 compared to 81 previously alk phos 393 but bilirubin is normal. Clinically, patient is doing well with no new signs symptoms, tolerating palliative therapy with Abraxane/gemcitabine well. We will proceed with next cycle number 3-day 1 with Abraxane/gemcitabine today and then he will return to clinic in 1 week with CBC CMP and if reasonable for next cycle of chemotherapy., Abdominal sonogram done on October 29, 2020 shows coarsened liver echotexture previously described infiltrative lesion in the left hepatic lobe better visualized on previous CT scan done in September 2020 no intrahepatic biliary ductal dilation. Mild perihepatic ascites. Normal gallbladder. No hydronephrosis Continue with supportive care and palliative chemotherapy and consider follow-up CT scan of abdomen pelvis after next cycle of chemotherapy Signed By: Collette Louie M.D. <<Signature on File>>
[2020-11-06 08:46] LABS: Basophils # 0.1 10^3/uL (0.0-0.1); Eosinophils # 0.2 10^3/uL (0.0-0.8); Eosinophils % 2.7 %; Hemoglobin 10.6 g/dL (11.7-16.6); Lymphocytes % 13.6 %; Mean Corpuscular HGB Conc 32.1 g/dL (30.0-36.0); Mean Corpuscular Hemoglobin 30.8 pg (28.0-34.0); Mean Corpuscular Volume 95.9 fL (80-94); Mean Platelet Volume 10.6 fL (7.4-10.4); Monocytes # 0.9 10^3/uL (0.2-0.9); Monocytes % 12.8 %; Neutrophils # 4.83 10^3/uL (1.8-7.7); Neutrophils % 68.9 %; Nucleated Red Blood Cells % 0 %; Platelet Count 158 10^3/cmm (130-400); Red Blood Count 3.44 10^6/uL (4.1-5.3); Red Cell Distribution Width 17.2 % (12.1-15.1)
[2020-11-06 09:11] LABS: Alanine Aminotransferase 44 U/L (0-41); Alkaline Phosphatase 314 IU/L (40-130); Anion Gap 11.3 (5-19); Aspartate Amino Transferase 62 U/L (0-40); Blood Urea Nitrogen 16 mg/dL (8-23); Carbon Dioxide 29 mmol/L (22-29); Chloride 97 mmol/L (98-107); Globulin 3.6 g/dL (1.3-4.6); Glucose 154 mg/dL (65-115); Osmolality Calculated 280 mOsm/kg (285-295); Potassium 4.3 mmol/L (3.5-5.1); Sodium 133 mmol/L (136-145); Total Bilirubin 0.4 mg/dL (0.15-1.2); Total Protein 6.6 g/dL (6.6-8.7)
[2020-11-07] MEDS: palonosetron 0.25 mg/5 mL SDV IV (12:36)
[2020-11-07] MEDS: sodium chloride 0.9% 250 ML 75 ML IV ×2 (12:36)
[2020-11-07] MEDS: famotidine 20 mg/2 mL INJ IVP (12:38)
[2020-11-07 12:56] LABS: Cancer Antigen 19 9 125.4 U/mL (0-35)
--- NOTE | 2020-11-07 14:04 | ONC FU_ITS ---
Dr. Louie follow up note Patient: Jose Bocanegra Unit #: [id number]: 1945 Dicatated By: Collette Louie M.D.Date of Visit:Nov 07, 2020 Onc Med Follow-up/Prog Note History of Present Illness: Mr. Bocanegra is a 74-year-old gentleman with history of poor taste abdominal discomfort and about 40 pound weight loss since September 2019, as per patient he used to weigh 233 pounds now down to 185 pounds also complaining of excessive, off and on dysphagia. Denies any abdominal pain, denies any melena or hematochezia, denies any hemoptysis or hematemesis as per patient, he had a colonoscopy done in 2019 But it was suboptimal study because of sigmoid stricture and colonoscopy was not advanced further subsequently underwent barium enema which showed narrowing of sigmoid colon secondary to chronic diverticulosis, Mr Bocanegra was evaluated by PMD for above mentioned symptoms and underwent CT scan of abdomen pelvis on July 24, 2020 which showed irregular mass centered in left lobe of liver measuring 4.7 x 8.7 x 5.6 cm. There are additional scattered nodules suspicious for metastatic disease. Bilateral lower lobe pulmonary nodules and lymph nodes along the right pulmonary ligament. There is a moderate nodularity and thickening of the omentum consistent with peritoneal carcinomatosis. Numerous small scattered lymph nodes within the mesentery and retroperitoneum. Multifocal area of abnormality within the colon, stricture near the hepatic flexure. There is a significant wall thickening and diverticular disease involving the descending and sigmoid colon. Additional circumstantial thickening involving antrum of stomach could be neoplastic. And lab work-up done on July 25, 2020 shows white blood count 8 hemoglobin 14 hematocrit 42.5 platelets 125,000 with a normal differential CEA 1.8, on August 06, 2020 he underwent sonogram guided liver biopsy which confirmed adenocarcinoma immunohistochemistry showed CK7 positive and p63 and weakly positive otherwise negative for CEA, CDX2, CK 5/6, CK20, Napsin, TTF-1, PIN 4,, as per pathology based on metastatic carcinoma being CK positive, CK20 negative and TTF-1 negative possibility of lung primary or colon primary is less likely but gastric adenocarcinoma, pancreatic subtype or an extrahepatic carcinoma bile duct is high on the differential. Patient underwent CT PET scan on August 03, 2020 which showed questionable sigmoid colon mass, extensive hepatic metastatic disease, malignant adenopathy in mediastinum, mesenteric, retroperitoneal area. Malignant omental implants and carcinomatosis. Malignant bilateral pulmonary nodules. 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 Patient has Port-A-Cath placement., Mr Bocanegra began palliative chemotherapy with gemcitabine/Abraxane on September 19, 2020. He has tolerated it well thus far. Came for follow-up, denies any specific complaint except generalized weakness and fatigue and dyspnea on exertion otherwise no abdominal pain, no worsening of abdominal distention, no nausea or vomiting, no diarrhea or constipation, no peripheral numbness, tolerating systemic therapy with Abraxane/gemcitabine well otherwise . Medications: Allopurinol 1 Tablet (of 100 mg) Oral b.i.d., Isosorbide Mononitrate ER 1 Tablet (of 30 mg) Tablet SR 24 HR Oral daily, Metoprolol Succinate ER 0.5 Tablet (of 25 mg) Tablet SR 24 HR Oral daily, Niacin 1 Tablet (of 500 mg) Oral daily, Simvastatin 1 Tablet (of 40 mg) Oral daily Allergies: No Known Allergies. Review of Systems: Review of Systems is not available for this patient. Vital Signs: Performed on Nov 07, 2020 11:10 Height - 68.00 in Weight - 163.0 lbs (LOW) BSA - 1.87 sq.m BMI - 24.78 Temperature - 98.4 F Pulse - 110 /min (HIGH) Respiration - 17 /min BP - 95/65 mm(hg) O2 Sat - 94 % (LOW) Pain - 0 Performance Status: 2 - Ambulatory/capable of all self-care, unable to perform any work activities. Up and about more than 50% of waking hours. (ECOG) Physical Examination: ENMT - No mouth sores, no thrush, no jaundice, Respiratory - Lungs are clear to auscultation, Cardiovascular - Regular rate and rhythm of heart, Abdomen - Soft, bowel sounds present, nontender mild fluid shift, Extremities - Trace edema bilaterally. Lab/Imaging: Test performed on Oct 14, 2020 13:20 Sodium 136 mmol/L Potassium 4.4 mmol/L Chloride 101 mmol/L CO2 26 mmol/L Anion Gap 13.4 BUN 11 mg/dL Creatinine 0.6 mg/dL Cr Clearance (Est) 125.9900 mL/min Glucose 140 mg/dL Osmolality - Calculated 284 mOsm/kg Calcium 9.9 mg/dL Protein, Total 6.3 g/dL Albumin 3.2 g/dL Globulin 3.1 g/dL Bilirubin, Total 0.3 mg/dL ALT (SGPT) 62 U/L AST (SGOT) 81 U/L Alkaline Phosphatase 333 IU/L WBC 5.4 10 3/uL RBC 3.64 10 6/uL HGB 11.1 g/dL HCT 34.1 % MCV 93.7 fL MCH 30.5 pg MCHC 32.6 g/dL RDW 16.3 % Platelet Count 206 10 3/cmm MPV 10.5 fL Neutrophils 3.06 10 3/uL Lymphocytes 1.2 10 3/uL Monocytes 0.9 10 3/uL Eosinophils 0.1 10 3/uL Basophils 0.1 10 3/uL Neutrophil % 56.9 % Lymphocyte % 21.8 % Monocyte % 16.8 % Eosinophil % 1.9 % Basophils % 1.1 % NRBC % 0 % Impression: Metastatic carcinoma, As per cancer type ID cholangiocarcinoma with 90% probability, per sonogram guided liver biopsy done on August 06, 2020, immunohistochemistry stain positive for CK7 but negative for CEA, CDX2, CK 5/6, CK20, Napsin, TTF-1, PIN 4, Guardant 360 showed tumor mutational burden less than 10 and MSI -high not detected, PD-L1 less than 1% but alteration in LEISA splice site SNV CT PET scan done on August 03 2020 showed questionable sigmoid colon mass, extensive metastatic disease in the liver dominant lesion in the left hepatic lobe demonstrating significant central necrosis measuring 9.6 x 5.4 cm SUV of 10. FDG positive soft tissue omental implants and omental stranding is consistent with carcinomatosis. Bilateral FDG positive retroperitoneal nodes down to the level of aortic bifurcation and extensive mesenteric lymphadenopathy. Intensive sigmoid colonic uptake suggestive of malignancy also noted FDG positive mediastinal nodes consistent with malignancy and bilateral pulmonary nodules, are FDG positive Diabetes mellitus, hypertension, aortic stenosis Plan: Discussed with patient regarding his labs white blood count 7 hemoglobin 10.6 g hematocrit 33 platelets 158,000 CMP within normal limit except glucose 154 and ALT 44, AST is 62 compared to 75 previously Clinically, patient is doing reasonably well, with no new signs symptoms,Not requiring repeated paracentesis for malignant ascites, tolerating palliative therapy with gemcitabine/Abraxane well, will proceed with cycle #3 day 8 with Abraxane/gemcitabine and then patient return to clinic in 2 weeks with CBC CMP and follow-up CT scan of abdomen pelvis I will also check his tumor marker CA [id number], if elevated, will use it in the future for follow-up to assess disease response Signed By: Collette Louie M.D. <<Signature on File>>
== END 2020-11-16 23:59 | disposition home or self-care (01) ==
LOC: ONCMED 05:44
PROVIDERS: PCP Internal Medicine; Visit Provider Internal Medicine Hematology & Oncology
DX: Z51.11 Encounter for antineoplastic chemotherapy (principal); C18.7 Malignant neoplasm of sigmoid colon; C78.7 Secondary malignant neoplasm of liver and intrahepatic bile duct; C77.8 Secondary and unspecified malignant neoplasm of lymph nodes of multiple regions; C78.01 Secondary malignant neoplasm of right lung; C78.02 Secondary malignant neoplasm of left lung; E11.9 Type 2 diabetes mellitus without complications; I10 Essential (primary) hypertension; I35.0 Nonrheumatic aortic (valve) stenosis; Z79.899 Other long term (current) drug therapy
CPT/HCPCS: 36415; 36591; 80053; 85025; 86301; 96360; 96367; 96375; 96413; 96417; 99215; J1100; J2469; J3490; J7030; J7050; J9201; J9264

== ENCOUNTER 2020-11-20 08:54 | Outpatient (CLI) | payer MEDICARE, SELFPAY ==
[2020-11-20 09:52] LABS: Alanine Aminotransferase 26 U/L (0-41); Albumin Level 2.9 g/dL (3.5-5.2); Alkaline Phosphatase 261 IU/L (40-130); Anion Gap 12.2 (5-19); Aspartate Amino Transferase 51 U/L (0-40); Blood Urea Nitrogen 14 mg/dL (8-23); Calcium 10.6 mg/dL (8.5-10.5); Carbon Dioxide 28 mmol/L (22-29); Chloride 99 mmol/L (98-107); Globulin 3.4 g/dL (1.3-4.6); Glucose 194 mg/dL (65-115); Osmolality Calculated 286 mOsm/kg (285-295); Potassium 4.2 mmol/L (3.5-5.1); Sodium 135 mmol/L (136-145); Total Bilirubin 0.4 mg/dL (0.15-1.2); Total Protein 6.3 g/dL (6.6-8.7)
[2020-11-20 09:54] LABS: Basophils # 0.1 10^3/uL (0.0-0.1); Basophils % 1.2 %; Eosinophils # 0.6 10^3/uL (0.0-0.8); Eosinophils % 5.9 %; Hematocrit 34.7 % (42.0-52.0); Hemoglobin 10.6 g/dL (11.7-16.6); Lymphocytes # 1.6 10^3/uL (0.8-4.8); Lymphocytes % 16.2 %; Mean Corpuscular HGB Conc 30.5 g/dL (30.0-36.0); Mean Corpuscular Hemoglobin 30.4 pg (28.0-34.0); Mean Corpuscular Volume 99.4 fL (80-94); Monocytes # 1.2 10^3/uL (0.2-0.9); Monocytes % 12.2 %; Neutrophils # 6.17 10^3/uL (1.8-7.7); Neutrophils % 63.1 %; Nucleated Red Blood Cells % 0 %; Platelet Count 256 10^3/cmm (130-400); Red Blood Count 3.49 10^6/uL (4.1-5.3); Red Cell Distribution Width 18.6 % (12.1-15.1); White Blood Count 9.8 10^3/uL (4.0-10.0)
--- NOTE | 2020-11-20 10:11 | CT_ITS ---
WS: [id number] CT ABDOMEN PELVIS TECHNIQUE: Contrast-enhanced CT of the abdomen and pelvis with coronal and sagittal reformatted image s. CLINICAL INFORMATION: METASTATIC ADENOCARCINOMA COMPARISON: CT September 22, 2020 and PET/CT August 03, 2020 DLP: 1152.[address] scans at [facility] use at least one of these dose optimization techniques: automat ed exposure control; mA and/or kV adjustment per patient size (includes targeted exams where dose is matched to clinical indication); or iterative reconstruction. FINDINGS: Again seen is the large infiltrating left hepatic mass slightly increased in size since September 22, 2020 . This measures 9.1 x 4.9 CM. Previously this measured 7.9 x 5.1 cm by my measurements. Smaller metas tatic lesions in the right hepatic lobe along the falciform ligament and right hepatic lobe laterally and inferiorly are similar in appearance. Normal portal vein and splenic vein. Normal spleen. Normal GE junction. Small metastatic nodules in the lung bases the largest measuring 13 mm appears stable c ompared to previous. Normal GE junction. Previously described gastric wall thickening is not seen today. Tiny amount of pe rihepatic and trace perisplenic fluid. Persistent peritoneal carcinomatosis in the ventral abdomen. T his appears stable compared to previous. Normal pancreas. Adrenal glands are normal. Normal renal parenchymal enhancement. Stable left renal c yst. A few slightly prominent periaortic lymph nodes are unchanged the largest measuring 9 mm. Small infrarenal abdominal aortic aneurysm measuring 2.6 x 2.1 CM. Diffuse thickening of the sigmoid colon with diverticulosis is similar to previous. Recommend correla tion for diverticulitis. Colonic neoplasm or metastatic disease not excluded. Intense uptake in this area on the prior PET CT August 03, 2020. No drainable abscess or fluid collection. No pelvic or ingui nal lymphadenopathy. CT/CT abdomen pelvis w con* [id number] IMPRESSION: 1. Progression of the heterogeneous enhancing left hepatic metastatic lesion t seamus measuring 9.1 x 4.9 cm compared to 7.9 x 5.1 CM previous. 2. Smaller stable metastatic lesions in the right hepatic lobe. 3. Peritoneal carcinomatosis in the ventral omentum is stable in appearance. 4. Borderline periaortic lymph nodes measuring 9 to 10 mm are unchanged. 5. No pelvic or inguinal lymphadenopathy. 6. Diffuse thickening with induration and inflammatory stranding about the sig moid colon suspicious for diverticulitis is unchanged in appearance. Recommend correlation for infection.Colonic neoplasm or metastatic disease not excluded. Intense uptake in this area on the prior PET CT August 03, 2020. 7. Abdominal ascites has improved from previous. Only trace perihepatic and pe risplenic fluid seen today. 8. Small metastatic pulmonary opacities in the lung bases are unchanged.
[2020-11-20] MEDS: iohexol 300 mg/mL 50 mL Btl PO (10:12)
[2020-11-20] MEDS: iohexol 300 mg/mL 100 mL Btl IV (12:06)
== END 2020-11-20 08:55 | disposition home or self-care (01) ==
PROVIDERS: PCP Internal Medicine; Visit Provider Internal Medicine Hematology & Oncology
DX: C80.1 Malignant (primary) neoplasm, unspecified (principal); C78.7 Secondary malignant neoplasm of liver and intrahepatic bile duct; Z79.899 Other long term (current) drug therapy
CPT/HCPCS: 36415; 36591; 74177; 80053; 85025; Q9967

== ENCOUNTER 2020-11-21 05:47 | Outpatient (RCR) | payer MEDICARE, SELFPAY ==
[2020-11-21] MEDS: famotidine 20 mg/2 mL INJ IVP (11:43)
[2020-11-21] MEDS: sodium chloride 0.9% 250 ML 75 ML IV (11:43)
[2020-11-21] MEDS: palonosetron 0.25 mg/5 mL SDV IV (11:48)
--- NOTE | 2020-11-21 16:47 | ONC FU_ITS ---
Dr. Louie follow up note Patient: Jose Bocanegra Unit #: [id number]: 1945 Dicatated By: Collette Louie M.D.Date of Visit:Nov 21, 2020 Onc Med Follow-up/Prog Note History of Present Illness: Mr. Bocanegra is a 74-year-old gentleman with history of poor taste abdominal discomfort and about 40 pound weight loss since September 2019, as per patient he used to weigh 233 pounds now down to 185 pounds also complaining of excessive, off and on dysphagia. Denies any abdominal pain, denies any melena or hematochezia, denies any hemoptysis or hematemesis as per patient, he had a colonoscopy done in 2019 But it was suboptimal study because of sigmoid stricture and colonoscopy was not advanced further subsequently underwent barium enema which showed narrowing of sigmoid colon secondary to chronic diverticulosis, Mr Bocanegra was evaluated by PMD for above mentioned symptoms and underwent CT scan of abdomen pelvis on July 24, 2020 which showed irregular mass centered in left lobe of liver measuring 4.7 x 8.7 x 5.6 cm. There are additional scattered nodules suspicious for metastatic disease. Bilateral lower lobe pulmonary nodules and lymph nodes along the right pulmonary ligament. There is a moderate nodularity and thickening of the omentum consistent with peritoneal carcinomatosis. Numerous small scattered lymph nodes within the mesentery and retroperitoneum. Multifocal area of abnormality within the colon, stricture near the hepatic flexure. There is a significant wall thickening and diverticular disease involving the descending and sigmoid colon. Additional circumstantial thickening involving antrum of stomach could be neoplastic. And lab work-up done on July 25, 2020 shows white blood count 8 hemoglobin 14 hematocrit 42.5 platelets 125,000 with a normal differential CEA 1.8, on August 06, 2020 he underwent sonogram guided liver biopsy which confirmed adenocarcinoma immunohistochemistry showed CK7 positive and p63 and weakly positive otherwise negative for CEA, CDX2, CK 5/6, CK20, Napsin, TTF-1, PIN 4,, as per pathology based on metastatic carcinoma being CK positive, CK20 negative and TTF-1 negative possibility of lung primary or colon primary is less likely but gastric adenocarcinoma, pancreatic subtype or an extrahepatic carcinoma bile duct is high on the differential. Patient underwent CT PET scan on August 03, 2020 which showed questionable sigmoid colon mass, extensive hepatic metastatic disease, malignant adenopathy in mediastinum, mesenteric, retroperitoneal area. Malignant omental implants and carcinomatosis. Malignant bilateral pulmonary nodules. 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 Patient has Port-A-Cath placement., Mr Bocanegra began palliative chemotherapy with gemcitabine/Abraxane on September 19, 2020. He has tolerated it well thus far .Follow-up CT scan of abdomen pelvis done on November 20, 2020 showed abdominal ascites has improved from previous, only trace perihepatic and perisplenic fluid seen. Peritoneal carcinomatosis in the ventral omentum is stable, no pelvic or inguinal lymphadenopathy. Borderline periaortic lymph nodes measuring 9 to 10 mm are unchanged. Smaller stable metastatic lesion in the right hepatic lobe. Right hepatic lesion 9.1 x 4.9 cm compared to 7.9 x 5.1 cm in September 2020, although report showed tumor was 10.3 cm, case was discussed with Dr. Harvey Nguyen radiologist, he said as per his measurement in September 2020 mass was 7.9 x 5.1 cm not 10.3 cm. Came for follow-up, complaining of generalized weakness and fatigue, no abdominal fullness, no nausea or vomiting but constipation, no abdominal pain, no jaundice, no fever chills, appetite is reasonable as patient is complaining of poor taste. Otherwise tolerating/palliative systemic therapy with gemcitabine/Abraxane well. With excellent palliation has no paracentesis required in the last many months and follow-up CT scan shows mild fatty hepatic and perisplenic ascites only. . Medications: Allopurinol 1 Tablet (of 100 mg) Oral b.i.d., Isosorbide Mononitrate ER 1 Tablet (of 30 mg) Tablet SR 24 HR Oral daily, Metoprolol Succinate ER 0.5 Tablet (of 25 mg) Tablet SR 24 HR Oral daily, Niacin 1 Tablet (of 500 mg) Oral daily, Simvastatin 1 Tablet (of 40 mg) Oral daily Allergies: No Known Allergies. Review of Systems: Review of Systems is not available for this patient. Vital Signs: Performed on Nov 21, 2020 08:36 Height - 68.00 in Weight - 152.8 lbs (LOW) BSA - 1.82 sq.m BMI - 23.23 Temperature - 96.9 F (LOW) Pulse - 98 /min Respiration - 18 /min BP - 122/78 mm(hg) O2 Sat - 94 % (LOW) Pain - 0 Fatigue - 8 Performance Status: 1 - No physically strenuous activity, but ambulatory and able to carry out light or sedentary work (e.g. office work, light house work). (ECOG) Physical Examination: ENMT - No mouth sores, no thrush, no jaundice, Respiratory - Lungs are clear to auscultation, Cardiovascular - Regular rate and rhythm of heart, Abdomen - Soft, bowel sounds present, Extremities - Trace edema bilaterally. Lab/Imaging: Test performed on Oct 14, 2020 13:20 Sodium 136 mmol/L Potassium 4.4 mmol/L Chloride 101 mmol/L CO2 26 mmol/L Anion Gap 13.4 BUN 11 mg/dL Creatinine 0.6 mg/dL Cr Clearance (Est) 125.9900 mL/min Glucose 140 mg/dL Osmolality - Calculated 284 mOsm/kg Calcium 9.9 mg/dL Protein, Total 6.3 g/dL Albumin 3.2 g/dL Globulin 3.1 g/dL Bilirubin, Total 0.3 mg/dL ALT (SGPT) 62 U/L AST (SGOT) 81 U/L Alkaline Phosphatase 333 IU/L WBC 5.4 10 3/uL RBC 3.64 10 6/uL HGB 11.1 g/dL HCT 34.1 % MCV 93.7 fL MCH 30.5 pg MCHC 32.6 g/dL RDW 16.3 % Platelet Count 206 10 3/cmm MPV 10.5 fL Neutrophils 3.06 10 3/uL Lymphocytes 1.2 10 3/uL Monocytes 0.9 10 3/uL Eosinophils 0.1 10 3/uL Basophils 0.1 10 3/uL Neutrophil % 56.9 % Lymphocyte % 21.8 % Monocyte % 16.8 % Eosinophil % 1.9 % Basophils % 1.1 % NRBC % 0 % Impression: Metastatic carcinoma, As per cancer type ID cholangiocarcinoma with 90% probability, per sonogram guided liver biopsy done on August 06, 2020, immunohistochemistry stain positive for CK7 but negative for CEA, CDX2, CK 5/6, CK20, Napsin, TTF-1, PIN 4, Guardant 360 showed tumor mutational burden less than 10 and MSI -high not detected, PD-L1 less than 1% but alteration in LEISA splice site SNV CT PET scan done on August 03 2020 showed questionable sigmoid colon mass, extensive metastatic disease in the liver dominant lesion in the left hepatic lobe demonstrating significant central necrosis measuring 9.6 x 5.4 cm SUV of 10. FDG positive soft tissue omental implants and omental stranding is consistent with carcinomatosis. Bilateral FDG positive retroperitoneal nodes down to the level of aortic bifurcation and extensive mesenteric lymphadenopathy. Intensive sigmoid colonic uptake suggestive of malignancy also noted FDG positive mediastinal nodes consistent with malignancy and bilateral pulmonary nodules, are FDG positive Started on palliative chemotherapy with Abraxane/gemcitabine, tolerated well and follow-up CT scanning of abdomen pelvis done on November 20, 2020 showed good response eg mild perihepatic, perisplenic ascites otherwise no evidence of disease progression except in the right lobe of the liver mass was 9.1 cm x 4.9 cm compared to 7.9 x 5.1 cm in September 2020 but report showed mass was 10.3 cm in September 2020, case was discussed with radiologist Dr. Harvey Nguyen, he will review scans again Anemia, etiology multifactorial Diabetes mellitus, hypertension, aortic stenosis Plan: Discussed with patient regarding his labs white blood count 9.8 hemoglobin 10.6 hematocrit 34.7 platelets 256,000 CMP within normal limit except glucose 194 and AST 51 compared to 62 previously ALT 26 compared to 44 previously alk phos 261 compared to [address] scan of abdomen pelvis CT scan of abdomen pelvis shows mild perihepatic, perisplenic ascites otherwise no evidence of disease progression except in the right lobe of the liver mass was 9.1 cm x 4.9 cm compared to 7.9 x 5.1 cm in September 2020 but report showed mass was 10.3 cm in September 2020, case was discussed with radiologist Dr. Harvey Nguyen, he will review scans again but overall stable disease and excellent palliation e.g. while on chemotherapy paracentesis was not required and follow-up scan shows minimal ascites and stable peritoneal carcinomatosis, stable small metastatic pulmonary opacities in the lung bases and unchanged. No pelvic or inguinal lymphadenopathy. But there is a diffuse thickening with induration and inflammatory stranding about the sigmoid colon suspicious for diverticulitis is unchanged in appearance. But patient has no recurrent fever or symptoms. At this point, will continue with same chemotherapy regimen with gemcitabine and Abraxane and then patient return to clinic in 1 week with CBC CMP and if patient could not tolerate then we may switch him to every other week for better tolerance otherwise continue with day 1 and 8 and repeat every 21 days. As far as anemia is concerned, patient has mild/moderate anemia but hemoglobin stable we will continue to monitor, if there is a drop, will consider blood transfusion. Patient was also advised to monitor his blood sugar and may consider sliding scale.^ As for his poor taste is concerned, patient was advised to maintain and improve oral hygiene] Signed By: Collette Louie M.D. <<Signature on File>>
== END 2020-11-22 20:20 | disposition home or self-care (01) ==
LOC: ONCMED 05:47
PROVIDERS: PCP Internal Medicine; Visit Provider Internal Medicine Hematology & Oncology
DX: Z51.11 Encounter for antineoplastic chemotherapy (principal); C22.1 Intrahepatic bile duct carcinoma; C78.5 Secondary malignant neoplasm of large intestine and rectum; C77.2 Secondary and unspecified malignant neoplasm of intra-abdominal lymph nodes; C78.01 Secondary malignant neoplasm of right lung; C78.02 Secondary malignant neoplasm of left lung; D64.9 Anemia, unspecified; E11.9 Type 2 diabetes mellitus without complications; I10 Essential (primary) hypertension; I70.0 Atherosclerosis of aorta; Z79.899 Other long term (current) drug therapy
CPT/HCPCS: 96367; 96375; 96413; 96417; 99215; J1100; J2469; J3490; J7050; J9201; J9264

== ENCOUNTER 2020-11-22 20:21 | Emergency (ER) | payer MEDICARE, SELFPAY ==
--- NOTE | 2020-11-22 20:26 | XRR_ITS ---
PROCEDURE INFORMATION: Exam: XR Chest Exam date and time: 11/22/2020 8:26 PM Age: 75 years old Clinical indication: Fever TECHNIQUE: Imaging protocol: XR of the chest. Views: 1 view. COMPARISON: No relevant prior studies available. FINDINGS: Tubes, catheters and devices: There is a left subclavian port present with the tip in the superior vena cava. Lungs: Poor inspiration. Decreased lung volumes. Likely bilateral infrahilar atelectasis. Pleural spaces: No pleural effusion. No pneumothorax. Heart/Mediastinum: The cardiac silhouette is not enlarged. The mediastinal contours are normal. Bones/joints: No acute osseous abnormality. XR/XR chest 1V portable [id number] IMPRESSION: Favor bilateral infrahilar atelectasis
[2020-11-22 20:43] VITALS: BP 116/73; PULSE 129; RESP 20; TEMP 38.2; O2SAT 93; BMI 24.3
[2020-11-22] MEDS: acetaminophen 325 mg Tablet 650 MG PO (21:51)
--- NOTE | 2020-11-22 22:01 | ED_ITS ---
HPI - Fever General: Chief Complaint: Fever Stated Complaint: Taking Chemo and fever was 104, 100.8 at home Time Seen by Provider: 11/22/20 21:10 Source: patient Mode of arrival: ambulatory Limitations: no limitations History of Present Illness: HPI Narrative: 75-year-old male who has a history of cancer and is currently on chemo. States that today he has had fatigue and not been feeling well he checked his temperature and is 100.8. He states his oncologist Dr. Louie formed him he needed to come to the ER. He denies any vomiting or diarrhea. He states he just feels weak and ill. MD elicited complaint: fever Associated symptoms: Reports chills; Deny abdominal pain, chest pain, diarrhea, dysuria, headache(s), nausea or vomiting Review of Systems Const: Reports: fever(s), chills and fatigue; Denies: body aches or change in appetite Eyes: Denies: blurry vision or eye discomfort ENMT: Denies: throat pain or dental pain Card: Denies: chest pain Resp: Denies: dyspnea GI: Denies: abdominal pain, nausea, vomiting or diarrhea : Denies: dysuria Musc: Denies: neck pain or back pain Skin/Breast: Denies: rash Neuro: Denies: headache(s) Psych: Denies: depression [place]/Lymph: Denies: easy bruising All/Imm: Denies: urticaria PFSH ED PFSH: Medical History Aortic valve stenosis Diabetes mellitus Gout HTN (hypertension) Hyperlipemia Surgical History H/O esophagogastroduodenoscopy (08/22/20) EGD with dilation History of colonoscopy 2019 Hx of cataract surgery S/P cardiac cath Family History Father Myocardial infarction CAD (coronary artery disease) Brother Myocardial infarction CAD (coronary artery disease) Mother Myocardial infarction Stroke Diabetes Social History Smoking and tobacco status: former smoker Physical Exam Const: COMMON NORMALS: no acute distress, patient oriented x3 and healthy appearing HENMT: COMMON NORMALS: normocephalic and atraumatic HEAD & SCALP: normocephalic and atraumatic Eye: COMMON NORMALS: Equal, round and reactive pupils present and EOMs intact bilaterally PUPIL: Yes Equal, round and reactive pupils present Neck/C-Spine: COMMON NORMALS: full ROM and supple Chest: COMMONS NORMALS: normal inspection of the chest and normal palpation of entire chest wall Resp: COMMON NORMALS: normal respiratory effort, No retractions, No use of accessory muscles and clear to auscultation bilaterally AUSCULTATION: clear to auscultation bilaterally Cardio: COMMON NORMALS: regular rate, regular rhythm and No murmurs present (Cardio) RATE: regular rate RHYTHM: regular rhythm GI: COMMON NORMALS: Normal to inspection, nondistended, normoactive bowel sounds present, Soft to palpation, non-tender and no masses PALPATION: Yes Soft to palpation Extremity: COMMON NORMALS: normal to inspection and full ROM Neuro: COMMON NORMALS: patient oriented x3, moves all extremities and no focal motor deficits Psych: COMMON NORMALS: mental status grossly normal, Normal thought process present and cooperative THOUGHT PROCESS: Normal thought process present Skin: COMMON NORMALS: no rashes or lesions noted and no wounds GENERAL SKIN EXAM: no rashes or lesions noted Course Vital Signs: Vital signs: Vital Signs Temperature 100.8 F H 11/22/20 20:43 Pulse Rate 120 H 11/22/20 22:30 Respiratory Rate 18 11/22/20 22:30 Blood Pressure 110/70 11/22/20 22:30 Pulse Oximetry 94 11/22/20 22:30 MDM - Fever MDM Narrative: Medical decision making narrative: Patient presents here with fever history of chemotherapy. Patient is not neutropenic has been well- appearing here. His x-ray urinalysis and blood work are all normal. He is normal lactate as well. I spoke to Dr. Holguin of oncology who will get blood cultures start him on antibiotics and have him follow-up with oncology outpatient. He is return to ER if worsening. He understands agrees to plan. Lab Data: Labs: Lab Results 11/22/20 11/22/20 11/22/20 Range/Units 21:42 22:00 22:00 WBC 7.4 (4.0-10.0) 10^3/ uL RBC 3.59 L (4.1-5.3) 10^6/u L Hgb 11.1 L (11.7-16.6) g/dL Hct 34.9 L (42.0-52.0) % MCV 97.2 H (80-94) fL MCH 30.9 (28.0-34.0) pg MCHC 31.8 (30.0-36.0) g/dL RDW 18.3 H (12.1-15.1) % Plt Count 265 (130-400) 10^3/c mm MPV 10.4 (7.4-10.4) fL Neut % (Auto) 78.8 % Lymph % (Auto) 11.1 % [place] % (Auto) 6.9 % Eos % (Auto) 1.8 % Baso % (Auto) 0.7 % Neut # (Auto) 5.84 (1.8-7.7) 10^3/u L Lymph # (Auto) 0.8 (0.8-4.8) 10^3/u L [place] # (Auto) 0.5 (0.2-0.9) 10^3/u L Eos # (Auto) 0.1 (0.0-0.8) 10^3/u L Baso # (Auto) 0.1 (0.0-0.1) 10^3/u L Nucleated RBC % (a uto) 0 % Nucleated RBCs # 0.0 /100WBC Sodium 137 (136-145) mmol/L Potassium 4.5 (3.5-5.1) mmol/L Chloride 100 (98-107) mmol/L Carbon Dioxide 29 (22-29) mmol/L Anion Gap 12.5 (5-19) BUN 18 (8-23) mg/dL Creatinine 0.8 (0.7-1.2) mg/dL GFR Calculation Not Reportable Glucose 131 H (65-115) mg/dL Calculated Osmolal ity 288 (285-295) mOsm/k g Lactic Acid (0.5-2.2) mmol/L Calcium 10.4 (8.5-10.5) mg/dL Total Bilirubin 0.6 (0.15-1.2) mg/dL AST 100 H (0-40) U/L ALT 51 H (0-41) U/L Alkaline Phosphata se 290 H (40-130) IU/L Total Protein 6.5 L (6.6-8.7) g/dL Albumin 3.3 L (3.5-5.2) g/dL Globulin 3.2 (1.3-4.6) g/dL Urine Color (Yellow) Urine Appearance (CLEAR) Urine pH (5-7) Ur Specific Gravit y (1.005-1.030) Urine Protein (Negative) Urine Glucose (UA) (Normal) Urine Ketones (Negative) Urine Blood (Negative) Urine Nitrate (Negative) Urine Bilirubin (Negative) Urine Urobilinogen (Negative) mg/dL Ur Leukocyte Analy ase (Negative) SARS-CoV-2 Ag (Rap id) Cancelled 11/22/20 11/22/20 11/22/20 Range/Units 22:00 22:09 22:43 WBC (4.0-10.0) 10^3/ uL RBC (4.1-5.3) 10^6/u L Hgb (11.7-16.6) g/dL Hct (42.0-52.0) % MCV (80-94) fL MCH (28.0-34.0) pg MCHC (30.0-36.0) g/dL RDW (12.1-15.1) % Plt Count (130-400) 10^3/c mm MPV (7.4-10.4) fL Neut % (Auto) % Lymph % (Auto) % [place] % (Auto) % Eos % (Auto) % Baso % (Auto) % Neut # (Auto) (1.8-7.7) 10^3/u L Lymph # (Auto) (0.8-4.8) 10^3/u L [place] # (Auto) (0.2-0.9) 10^3/u L Eos # (Auto) (0.0-0.8) 10^3/u L Baso # (Auto) (0.0-0.1) 10^3/u L Nucleated RBC % (a uto) % Nucleated RBCs # /100WBC Sodium (136-145) mmol/L Potassium (3.5-5.1) mmol/L Chloride (98-107) mmol/L Carbon Dioxide (22-29) mmol/L Anion Gap (5-19) BUN (8-23) mg/dL Creatinine (0.7-1.2) mg/dL GFR Calculation Glucose (65-115) mg/dL Calculated Osmolal ity (285-295) mOsm/k g Lactic Acid 1.3 (0.5-2.2) mmol/L Calcium (8.5-10.5) mg/dL Total Bilirubin (0.15-1.2) mg/dL AST (0-40) U/L ALT (0-41) U/L Alkaline Phosphata se (40-130) IU/L Total Protein (6.6-8.7) g/dL Albumin (3.5-5.2) g/dL Globulin (1.3-4.6) g/dL Urine Color Yellow (Yellow) Urine Appearance Clear (CLEAR) Urine pH 6 (5-7) Ur Specific Gravit y 1.010 (1.005-1.030) Urine Protein Neg (Negative) Urine Glucose (UA) Norm (Normal) Urine Ketones Negative (Negative) Urine Blood Neg (Negative) Urine Nitrate Negative (Negative) Urine Bilirubin Neg (Negative) Urine Urobilinogen Norm (Negative) mg/dL Ur Leukocyte Analy ase Negative (Negative) SARS-CoV-2 Ag (Rap id) Negative Imaging Data^: CXR: Attestation: I personally reviewed and interpreted this imaging study as follows: My impression: no acute abnormality Discharge Plan Discharge Patient Disposition: Home Clinical Impression: Fever of unknown origin Condition: Stable Prescriptions: New cephalexin 500 mg capsule 500 mg PO TID 7 Days Qty: 21 RF: 0 No Action allopurinol 100 mg tablet 100 mg PO BID RF: 0 niacin 500 mg tablet 500 mg PO DAILY RF: 0 aspirin [Adult Low Dose Aspirin] 81 mg tablet,delayed release (DR/EC) 81 mg PO DAILY RF: 0 isosorbide mononitrate 30 mg tablet extended release 24 hr 15 mg PO BID Qty: 90 RF: 3 nitroglycerin [Nitrostat] 0.4 mg tablet, sublingual 0.4 mg sublingual Q5M PRN (Reason: chest pain) Qty: 50 RF: 3 Colace 100 mg capsule 100 mg PO BID Qty: 30 RF: 0 hydrocodone-acetaminophen 5-325 mg tablet 1 tab PO Q6H PRN (Reason: pain) Qty: 20 RF: 0 ondansetron HCl [Zofran] 4 mg tablet 4 mg PO Q6H PRN (Reason: nausea and vomiting) Qty: 20 RF: 0 Discharge Orders: Discharge ED (Routine); Ordered 11/22/20 Ordered By: Carrie Freedman Referrals: Jessica Shaw MD [Primary Care Provider] - 1-3 days Discharge Diet: Advance as tolerated Discharge Activity: Resume usual activity Patient Instructions: Fever in Adults (ED) Coding Level of Care Code ED Rouge Miller for Chg Fwd Exam Comprehensive
[2020-11-22 22:10] VITALS: PULSE 133; RESP 22; O2SAT 93
[2020-11-22 22:11] LABS: Basophils # 0.1 10^3/uL (0.0-0.1); Basophils % 0.7 %; Eosinophils # 0.1 10^3/uL (0.0-0.8); Eosinophils % 1.8 %; Hematocrit 34.9 % (42.0-52.0); Hemoglobin 11.1 g/dL (11.7-16.6); Lymphocytes # 0.8 10^3/uL (0.8-4.8); Lymphocytes % 11.1 %; Mean Corpuscular HGB Conc 31.8 g/dL (30.0-36.0); Mean Corpuscular Hemoglobin 30.9 pg (28.0-34.0); Mean Corpuscular Volume 97.2 fL (80-94); Mean Platelet Volume 10.4 fL (7.4-10.4); Monocytes # 0.5 10^3/uL (0.2-0.9); Monocytes % 6.9 %; Neutrophils # 5.84 10^3/uL (1.8-7.7); Neutrophils % 78.8 %; Nucleated Red Blood Cells % 0 %; Platelet Count 265 10^3/cmm (130-400); Red Blood Count 3.59 10^6/uL (4.1-5.3); Red Cell Distribution Width 18.3 % (12.1-15.1); White Blood Count 7.4 10^3/uL (4.0-10.0)
[2020-11-22 22:15] VITALS: BP 113/82; PULSE 123; RESP 20; O2SAT 95
[2020-11-22 22:21] LABS: Add Urine Microscopic? NO; Charge for UA Resulting for Rev
[2020-11-22 22:30] VITALS: BP 110/70; PULSE 120; RESP 18; O2SAT 94
[2020-11-22 22:31] LABS: Alanine Aminotransferase 51 U/L (0-41); Albumin Level 3.3 g/dL (3.5-5.2); Alkaline Phosphatase 290 IU/L (40-130); Anion Gap 12.5 (5-19); Aspartate Amino Transferase 100 U/L (0-40); Blood Urea Nitrogen 18 mg/dL (8-23); Calcium 10.4 mg/dL (8.5-10.5); Carbon Dioxide 29 mmol/L (22-29); Chloride 100 mmol/L (98-107); Globulin 3.2 g/dL (1.3-4.6); Glucose 131 mg/dL (65-115); Osmolality Calculated 288 mOsm/kg (285-295); Potassium 4.5 mmol/L (3.5-5.1); Sodium 137 mmol/L (136-145); Total Bilirubin 0.6 mg/dL (0.15-1.2); Total Protein 6.5 g/dL (6.6-8.7)
[2020-11-22 22:32] LABS: Lactic Sepsis W/Reflex 1.3 mmol/L (0.5-2.2)
[2020-11-22 22:38] LABS: Bilirubin Urine Neg (Negative); Blood Urine Neg (Negative); Glucose Urine UA Norm (Normal); Ketones Urine Negative (Negative); Leukocyte Esterase Urine Negative (Negative); Nitrate Urine Negative (Negative); Protein Urine Neg (Negative); Urine Appearance Clear (CLEAR); Urine Color Yellow (Yellow); Urobilinogen Urine Norm (Negative); pH Urine 6 (5-7)
[2020-11-22 23:09] LABS: SARS Covid-2 Antigen Negative (Negative)
[2020-11-22] MEDS: sodium chloride 0.9% 1,000 ML 999 ML IV (23:49)
[2020-11-22] MEDS: cefTRIAXone 1,000 MG in sodium chloride 0.9% (plus) 50 ML 100 MG IV (23:50)
[2020-11-23 00:12] VITALS: TEMP 36.7
[2020-11-23 00:58] VITALS: O2SAT 94
[2020-11-23 01:20] VITALS: BP 104/73; PULSE 99; RESP 18; O2SAT 96
--- NOTE | 2020-11-23 01:21 | PC.NURSE ---
Patient's port flushed with heparin flush and then deaccessed.
== END 2020-11-23 01:28 | disposition home or self-care (01) ==
PROVIDERS: Nurse Practitioner Family; Emergency Provider Emergency Medicine; PCP Internal Medicine
DX: R50.9 Fever, unspecified (principal); Z79.82 Long term (current) use of aspirin; E11.9 Type 2 diabetes mellitus without complications; I10 Essential (primary) hypertension; E78.5 Hyperlipidemia, unspecified; Z87.891 Personal history of nicotine dependence; Z85.9 Personal history of malignant neoplasm, unspecified; Z79.899 Other long term (current) drug therapy; Z20.822 Contact with and (suspected) exposure to COVID-19
CPT/HCPCS: 36415; 71045; 80053; 81003; 83605; 85025; 87040; 87426; 96365; 96375; 99284; J0696; J1642; J7030

== ENCOUNTER 2020-11-28 05:25 | Outpatient (RCR) | payer MEDICARE, SELFPAY ==
[2020-11-27 12:28] LABS: Basophils # 0.1 10^3/uL (0.0-0.1); Eosinophils # 0.3 10^3/uL (0.0-0.8); Eosinophils % 3.4 %; Hematocrit 31.9 % (42.0-52.0); Lymphocytes # 1.5 10^3/uL (0.8-4.8); Lymphocytes % 19.2 %; Mean Corpuscular HGB Conc 31.3 g/dL (30.0-36.0); Mean Corpuscular Hemoglobin 30.9 pg (28.0-34.0); Mean Corpuscular Volume 98.5 fL (80-94); Mean Platelet Volume 10.8 fL (7.4-10.4); Monocytes # 0.9 10^3/uL (0.2-0.9); Monocytes % 11.8 %; Neutrophils # 4.85 10^3/uL (1.8-7.7); Neutrophils % 63.2 %; Nucleated Red Blood Cells % 0 %; Platelet Count 188 10^3/cmm (130-400); Red Blood Count 3.24 10^6/uL (4.1-5.3); Red Cell Distribution Width 17.4 % (12.1-15.1); White Blood Count 7.7 10^3/uL (4.0-10.0)
[2020-11-27 13:04] LABS: Alanine Aminotransferase 52 U/L (0-41); Alkaline Phosphatase 292 IU/L (40-130); Anion Gap 11.1 (5-19); Aspartate Amino Transferase 62 U/L (0-40); Blood Urea Nitrogen 19 mg/dL (8-23); Calcium 10.7 mg/dL (8.5-10.5); Carbon Dioxide 28 mmol/L (22-29); Chloride 98 mmol/L (98-107); Globulin 3.4 g/dL (1.3-4.6); Glucose 176 mg/dL (65-115); Iron 37 ug/dL (59-158); Osmolality Calculated 283 mOsm/kg (285-295); Percent Saturation 20.1 % (20-50); Potassium 4.1 mmol/L (3.5-5.1); Sodium 133 mmol/L (136-145); Total Bilirubin 0.3 mg/dL (0.15-1.2); Total Iron Binding Capacity 184 mcg/dl; Total Protein 6.4 g/dL (6.6-8.7); Unsaturated Iron Binding 147 ug/dL (112-347)
[2020-11-27 13:19] LABS: Vitamin B12 545 pg/mL (232-1245)
[2020-11-27 13:30] LABS: Ferritin 1029 ng/mL (30-400)
[2020-11-27 13:32] LABS: Folate Level 12.1 ng/mL (4.5-32.2)
[2020-11-28] MEDS: sodium chloride 0.9% 250 ML 75 ML IV (09:54)
[2020-11-28] MEDS: palonosetron 0.25 mg/5 mL SDV IV (09:54)
[2020-11-28] MEDS: famotidine 20 mg/2 mL INJ IVP (09:55)
--- NOTE | 2020-11-28 16:02 | ONC FU_ITS ---
Dr. Louie follow up note Patient: Jose Bocanegra Unit #: [id number]: 1945 Dicatated By: Collette Louie M.D.Date of Visit:Nov 28, 2020 Onc Med Follow-up/Prog Note History of Present Illness: Mr. Bocanegra is a 74-year-old gentleman with history of poor taste abdominal discomfort and about 40 pound weight loss since September 2019, as per patient he used to weigh 233 pounds now down to 185 pounds also complaining of excessive, off and on dysphagia. Denies any abdominal pain, denies any melena or hematochezia, denies any hemoptysis or hematemesis as per patient, he had a colonoscopy done in 2019 But it was suboptimal study because of sigmoid stricture and colonoscopy was not advanced further subsequently underwent barium enema which showed narrowing of sigmoid colon secondary to chronic diverticulosis, Mr Bocanegra was evaluated by PMD for above mentioned symptoms and underwent CT scan of abdomen pelvis on July 24, 2020 which showed irregular mass centered in left lobe of liver measuring 4.7 x 8.7 x 5.6 cm. There are additional scattered nodules suspicious for metastatic disease. Bilateral lower lobe pulmonary nodules and lymph nodes along the right pulmonary ligament. There is a moderate nodularity and thickening of the omentum consistent with peritoneal carcinomatosis. Numerous small scattered lymph nodes within the mesentery and retroperitoneum. Multifocal area of abnormality within the colon, stricture near the hepatic flexure. There is a significant wall thickening and diverticular disease involving the descending and sigmoid colon. Additional circumstantial thickening involving antrum of stomach could be neoplastic. And lab work-up done on July 25, 2020 shows white blood count 8 hemoglobin 14 hematocrit 42.5 platelets 125,000 with a normal differential CEA 1.8, on August 06, 2020 he underwent sonogram guided liver biopsy which confirmed adenocarcinoma immunohistochemistry showed CK7 positive and p63 and weakly positive otherwise negative for CEA, CDX2, CK 5/6, CK20, Napsin, TTF-1, PIN 4,, as per pathology based on metastatic carcinoma being CK positive, CK20 negative and TTF-1 negative possibility of lung primary or colon primary is less likely but gastric adenocarcinoma, pancreatic subtype or an extrahepatic carcinoma bile duct is high on the differential. Patient underwent CT PET scan on August 03, 2020 which showed questionable sigmoid colon mass, extensive hepatic metastatic disease, malignant adenopathy in mediastinum, mesenteric, retroperitoneal area. Malignant omental implants and carcinomatosis. Malignant bilateral pulmonary nodules. 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 Patient has Port-A-Cath placement., Mr Bocanegra began palliative chemotherapy with gemcitabine/Abraxane on September 19, 2020. He has tolerated it well thus far .Follow-up CT scan of abdomen pelvis done on November 20, 2020 showed abdominal ascites has improved from previous, only trace perihepatic and perisplenic fluid seen. Peritoneal carcinomatosis in the ventral omentum is stable, no pelvic or inguinal lymphadenopathy. Borderline periaortic lymph nodes measuring 9 to 10 mm are unchanged. Smaller stable metastatic lesion in the right hepatic lobe. Right hepatic lesion 9.1 x 4.9 cm compared to 7.9 x 5.1 cm in September 2020, although report showed tumor was 10.3 cm, case was discussed with Dr. Harvey Nguyen radiologist, he said as per his measurement in September 2020 mass was 7.9 x 5.1 cm not 10.3 cm. Came for follow-up, denies any specific complaint except generalized weakness and fatigue but no abdominal pain, no nausea or vomiting, no diarrhea but off-and-on constipation, no abdominal fullness, tolerating palliative chemotherapy with gemcitabine/Abraxane reasonably well . Medications: Allopurinol 1 Tablet (of 100 mg) Oral b.i.d., Isosorbide Mononitrate ER 1 Tablet (of 30 mg) Tablet SR 24 HR Oral daily, Metoprolol Succinate ER 0.5 Tablet (of 25 mg) Tablet SR 24 HR Oral daily, Niacin 1 Tablet (of 500 mg) Oral daily, Simvastatin 1 Tablet (of 40 mg) Oral daily Allergies: No Known Allergies. Review of Systems: Review of Systems is not available for this patient. Vital Signs: Performed on Nov 28, 2020 12:00 Height - 68.00 in Temperature - 97.1 F (LOW) Pulse - 88 /min Respiration - 18 /min BP - 135/81 mm(hg) O2 Sat - 94 % (LOW) Performed on Nov 28, 2020 08:07 Height - 68.00 in Weight - 154 lbs (HIGH) BSA - 1.83 sq.m BMI - 23.42 Temperature - 97.4 F (LOW) Pulse - 101 /min (HIGH) Respiration - 18 /min BP - 127/78 mm(hg) O2 Sat - 96 % Pain - 0 Fatigue - 4 Performance Status: 2 - Ambulatory/capable of all self-care, unable to perform any work activities. Up and about more than 50% of waking hours. (ECOG) Physical Examination: ENMT - Dry oral mucosa no mouth sores, no thrush, no jaundice, Respiratory - Lungs are clear to auscultation, Cardiovascular - Regular rate and rhythm of heart, Abdomen - Soft, bowel sounds present, Extremities - Trace edema bilaterally. Lab/Imaging: Test performed on Oct 14, 2020 13:20 Sodium 136 mmol/L Potassium 4.4 mmol/L Chloride 101 mmol/L CO2 26 mmol/L Anion Gap 13.4 BUN 11 mg/dL Creatinine 0.6 mg/dL Cr Clearance (Est) 125.9900 mL/min Glucose 140 mg/dL Osmolality - Calculated 284 mOsm/kg Calcium 9.9 mg/dL Protein, Total 6.3 g/dL Albumin 3.2 g/dL Globulin 3.1 g/dL Bilirubin, Total 0.3 mg/dL ALT (SGPT) 62 U/L AST (SGOT) 81 U/L Alkaline Phosphatase 333 IU/L WBC 5.4 10 3/uL RBC 3.64 10 6/uL HGB 11.1 g/dL HCT 34.1 % MCV 93.7 fL MCH 30.5 pg MCHC 32.6 g/dL RDW 16.3 % Platelet Count 206 10 3/cmm MPV 10.5 fL Neutrophils 3.06 10 3/uL Lymphocytes 1.2 10 3/uL Monocytes 0.9 10 3/uL Eosinophils 0.1 10 3/uL Basophils 0.1 10 3/uL Neutrophil % 56.9 % Lymphocyte % 21.8 % Monocyte % 16.8 % Eosinophil % 1.9 % Basophils % 1.1 % NRBC % 0 % Impression: Metastatic carcinoma, As per cancer type ID cholangiocarcinoma with 90% probability, per sonogram guided liver biopsy done on August 06, 2020, immunohistochemistry stain positive for CK7 but negative for CEA, CDX2, CK 5/6, CK20, Napsin, TTF-1, PIN 4, Guardant 360 showed tumor mutational burden less than 10 and MSI -high not detected, PD-L1 less than 1% but alteration in LEISA splice site SNV CT PET scan done on August 03 2020 showed questionable sigmoid colon mass, extensive metastatic disease in the liver dominant lesion in the left hepatic lobe demonstrating significant central necrosis measuring 9.6 x 5.4 cm SUV of 10. FDG positive soft tissue omental implants and omental stranding is consistent with carcinomatosis. Bilateral FDG positive retroperitoneal nodes down to the level of aortic bifurcation and extensive mesenteric lymphadenopathy. Intensive sigmoid colonic uptake suggestive of malignancy also noted FDG positive mediastinal nodes consistent with malignancy and bilateral pulmonary nodules, are FDG positive Started on palliative chemotherapy with Abraxane/gemcitabine, tolerated well and follow-up CT scanning of abdomen pelvis done on November 20, 2020 showed good response eg mild perihepatic, perisplenic ascites otherwise no evidence of disease progression except in the right lobe of the liver mass was 9.1 cm x 4.9 cm compared to 7.9 x 5.1 cm in September 2020 but report showed mass was 10.3 cm in September 2020, case was discussed with radiologist Dr. Harvey Nguyen, he will review scans again Anemia, etiology multifactorial Diabetes mellitus, hypertension, aortic stenosis Plan: Discussed with patient regarding his labs white blood count 7.7 hemoglobin 10 hematocrit 31.9 platelets 188,000 CMP within normal limit except glucose 176, anemia work-up showed iron saturation 20.1 ferritin 1029, folate 12.1, iron 37 B12 545 Clinically, patient doing reasonably well, tolerating palliative therapy with gemcitabine/Abraxane well with decent palliation, no more reaccumulation of ascites, stable disease on recent done CT PET scan, no significant toxicity on palliative chemotherapy except generalized weakness and fatigue. We will proceed with day 8 chemotherapy with Abraxane/gemcitabine and then he will return to clinic in 2 weeks with CBC CMP, patient was advised to maintain hydration if needed he can come to clinic for IV fluids on as-needed basis, as far as generalized weakness and fatigue is concerned, probably multifactorial including dehydration, hyperglycemia, anemia which could be multifactorial including iron deficiency as his iron saturation and iron is on the lower side whereas ferritin is elevated which could be as acute phase reactant., So we will try oral iron supplement, and monitor his iron studies. We will continue to monitor his blood counts and consider blood transfusion if hemoglobin less than 8 g Signed By: Collette Louie M.D. <<Signature on File>>
== END 2020-12-17 23:59 | disposition home or self-care (01) ==
LOC: ONCMED 05:25
PROVIDERS: PCP Internal Medicine; Visit Provider Internal Medicine Hematology & Oncology
DX: Z51.11 Encounter for antineoplastic chemotherapy (principal); C22.1 Intrahepatic bile duct carcinoma; C78.01 Secondary malignant neoplasm of right lung; C78.02 Secondary malignant neoplasm of left lung; C78.5 Secondary malignant neoplasm of large intestine and rectum; D64.9 Anemia, unspecified; E11.9 Type 2 diabetes mellitus without complications; I10 Essential (primary) hypertension; I70.0 Atherosclerosis of aorta; Z79.899 Other long term (current) drug therapy
CPT/HCPCS: 36415; 36591; 80053; 82607; 82728; 82746; 83540; 83550; 85025; 96367; 96375; 96413; 96417; 99215; J1100; J2469; J3490; J7050; J9201; J9264